=== PATIENT | female | born 1940 | race Caucasian/White ===

== ENCOUNTER 2017-10-14 18:08 | Emergency (ER) | payer OTHER ==
--- NOTE | 2017-10-14 19:32 | EDPHYS ---
Physician Documentation [facility] Name: Milagro Canela Age: 77 yrs Sex: Female : 1940 Arrival Date: 10/14/2017 Time: 18:14 Bed 26 Private MD: ED Physician Fidel Soria HPI: 10/14 21:23 This 77 yrs old Female presents to ER via EMS with complaints of Hip Pain. jr8 22:05 The patient or guardian reports pain. that occurred at home, sustained from a fall, jr8 There is no obvious deformity, The patient is able to self ambulate. The patient is able to bear their full body weight. The complaints affect the left hip. Onset: The symptoms/episode began/occurred acutely, today. Modifying factors: The symptoms are alleviated by nothing, the symptoms are aggravated by weight bearing. Associated signs and symptoms: Loss of consciousness: the patient experienced no loss of consciousness. Severity of symptoms: At their worst the symptoms were moderate, in the emergency department the symptoms are unchanged. The patient has not experienced similar symptoms in the past. The patient has not recently seen a physician. Historical: - Allergies: 18:30 No Known Allergies; kr2 - Home Meds: 18:30 levothyroxine 88 mcg tab 1 tab once daily [Active]; glucosamine-chondroitin oral oral kr2 [Active]; flaxseed oil 1,000 mg oral cap twice a day [Active]; metoprolol tartrate 25 mg Oral tab 1 tab 2 times per day [Active]; sertraline 100 mg oral tab 1.5 tabs once daily [Active]; tolterodine 4 mg oral cp24 1 cap once daily [Active]; Super B Complex-Vitamin C oral tab [Active]; multivitamin oral oral [Active]; gabapentin 100 mg oral cap 2 times per day [Active]; Co Q-10 100 mg oral cap [Active]; Ecotrin Low Strength 81 mg oral TbEC 1 tab once daily [Active]; doxycycline hyclate 100 mg Oral cap 1 cap once daily [Active]; esomeprazole magnesium 40 mg oral cpDR 1 cap once daily [Active]; magnesium citrate oral soln [Active]; - PMHx: 18:30 bladder tumors; Hypertension; Hypothyroidism; kr2 - PSHx: 18:30 Hysterectomy; Appendectomy; kr2 - Immunization history:: Adult Immunizations up to date. - Social history:: Smoking status: Patient/guardian denies using tobacco. - Ebola Screening: : No symptoms or risks identified at this time. ROS: 22:05 Eyes: Negative for injury, pain, redness, and discharge, ENT: Negative for injury, jr8 pain, and discharge, Neck: Negative for injury, pain, and swelling, Cardiovascular: Negative for chest pain, palpitations, and edema, Respiratory: Negative for shortness of breath, cough, wheezing, and pleuritic chest pain, Abdomen/GI: Negative for abdominal pain, nausea, vomiting, diarrhea, and constipation, Back: Negative for injury and pain, Skin: Negative for injury, rash, and discoloration, Neuro: Negative for headache, weakness, numbness, tingling, and seizure. 22:05 MS/extremity: Positive for ecchymosis, pain, tenderness, of the left leg. Exam: 22:05 Eyes: Pupils equal round and reactive to light, extra-ocular motions intact. Lids and jr8 lashes normal. Conjunctiva and sclera are non-icteric and not injected. Cornea within normal limits. Periorbital areas with no swelling, redness, or edema. ENT: Nares patent. No nasal discharge, no septal abnormalities noted. Tympanic membranes are normal and external auditory canals are clear. Oropharynx with no redness, swelling, or masses, exudates, or evidence of obstruction, uvula midline. Mucous membranes moist. Neck: Trachea midline, no thyromegaly or masses palpated, and no cervical lymphadenopathy. Supple, full range of motion without nuchal rigidity, or vertebral point tenderness. No Meningismus. Cardiovascular: Regular rate and rhythm with a normal S1 and S2. No gallops, murmurs, or rubs. Normal PMI, no JVD. No pulse deficits. Respiratory: Lungs have equal breath sounds bilaterally, clear to auscultation and percussion. No rales, rhonchi or wheezes noted. No increased work of breathing, no retractions or nasal flaring. Abdomen/GI: Soft, non-tender, with normal bowel sounds. No distension or tympany. No guarding or rebound. No evidence of tenderness throughout. Back: No spinal tenderness. No costovertebral tenderness. Full range of motion. Skin: Warm, dry with normal turgor. Normal color with no rashes, no lesions, and no evidence of cellulitis. Neuro: Awake and alert, GCS 15, oriented to person, place, time, and situation. Cranial nerves II-XII grossly intact. Motor strength 5/5 in all extremities. Sensory grossly intact. Cerebellar exam normal. Normal gait. 22:05 Musculoskeletal/extremity: Extremities: grossly normal except: noted in the left leg: ecchymosis, hematoma left hip, ROM: intact in all extremities, Circulation is intact in all extremities. Sensation intact. Vital Signs: 18:32 BP 111 / 66; Pulse 80; Resp 17; Temp 98.5; Pulse Ox 100% on R/A; Weight 65.32 kg; kr2 Height 4 ft. 10 in. (147.32 cm); Pain 0/10; 18:32 Body Mass Index 30.10 (65.32 kg, 147.32 cm) kr2 MDM: 18:43 Patient medically screened. jr8 19:31 Data reviewed: vital signs, nurses notes, radiologic studies, plain films, and as a jr8 result, I will discharge patient. Data interpreted: Pulse oximetry: on room air is 100 %. Interpretation: normal. Counseling: I had a detailed discussion with the patient and/or guardian regarding: the historical points, exam findings, and any diagnostic results supporting the discharge/admit diagnosis, radiology results, the need for outpatient follow up, a orthopedic surgeon, to return to the emergency department if symptoms worsen or persist or if there are any questions or concerns that arise at home. 10/14 18:49 Order name: XRAY Hip LEFT 2 view; Complete Time: 20:05 jr8 10/14 18:49 Order name: XRAY Femur LEFT; Complete Time: 20:05 jr8 Administered Medications: No medications were administered Disposition: 10/14/17 19:31 Discharged to Home. Impression: Hematoma left hip, Contusion of left hip. - Condition is Stable. - Discharge Instructions: Hematoma. - Medication Reconciliation Form, Thank You Letter, Antibiotic Education, Prescription Opioid Use form. - Follow up: Private Physician; When: 2 - 3 days; Reason: Recheck today's complaints, Continuance of care, Re-evaluation by your physician. - Problem is new. - Symptoms have improved. Addendum: 10/17/2017 19:38 Co-signature as Attending Physician, Fidel Soria MD. r n Signatures: Dispatcher [employer] EDMS Fidel Soria MD MD rn Roszak, Josh, PA PA jr8 Nadia Hubbard RN RN kr2 Corrections: (The following items were deleted from the chart) 10/14 19:32 19:31 10/14/2017 19:31 Discharged to Home. Impression: Hematoma left hip. Condition is jr8 Stable. Forms are Medication Reconciliation Form, Thank You Letter, Antibiotic Education, Prescription Opioid Use. Follow up: Private Physician; When: 2 - 3 days; Reason: Recheck today's complaints, Continuance of care, Re-evaluation by your physician. Problem is new. Symptoms have improved. jr8 20:12 19:32 10/14/2017 19:31 Discharged to Home. Impression: Hematoma left hip; Contusion of kr2 left hip. Condition is Stable. Discharge Instructions: Hematoma. Forms are Medication Reconciliation Form, Thank You Letter, Antibiotic Education, Prescription Opioid Use. Follow up: Private Physician; When: 2 - 3 days; Reason: Recheck today's complaints, Continuance of care, Re-evaluation by your physician. Problem is new. Symptoms have improved. jr8
--- NOTE | 2017-10-14 19:32 | ER ---
Nurse's Notes [facility] Name: Milagro Canela Age: 77 yrs Sex: Female : 1940 Arrival Date: 10/14/2017 Time: 18:14 Bed 26 Private MD: Diagnosis: Hematoma left hip;Contusion of left hip Presentation: 10/14 18:15 Presenting complaint: EMS states: Patient tripped and fell about 1.5 weeks ago. She has kr2 had hip pain and bruising ever since. Today she notice the bruising was much worse. She does not take blood thinners and has no other complaints. She is comfortable when lying still. Transition of care: patient was not received from another setting of care. Onset of symptoms was October 04, 2017. Risk Assessment: Do you want to hurt yourself or someone else? Patient reports no desire to harm self or others. Initial Sepsis Screen: Does the patient meet any 2 criteria? No. Patient's initial sepsis screen is negative. Does the patient have a suspected source of infection? No. Patient's initial sepsis screen is negative. Care prior to arrival: None. 18:15 Method Of Arrival: EMS: [facility] kr2 18:15 Acuity: ADRIANNA 4 kr2 Triage Assessment: 18:18 General: Appears in no apparent distress. comfortable, well groomed, well developed, kr2 well nourished, Behavior is calm, cooperative, appropriate for age. Pain: Complains of pain in left hip Pain radiates to left leg Pain currently is 0 out of 10 on a pain scale. at worst was 10 out of 10 on a pain scale. Quality of pain is described as sharp, tender, Is intermittent, Alleviated by rest, Aggravated by increased activity, weight bearing. EENT: Oral mucosa is moist. Neuro: Level of Consciousness is awake, alert, obeys commands, Oriented to person, place, time, situation, Appropriate for age. Cardiovascular: Capillary refill < 3 seconds in bilateral fingers Patient's skin is warm and dry. Respiratory: Airway is patent Respiratory effort is even, unlabored, Respiratory pattern is regular, symmetrical. GI: Abdomen is flat, non-distended. : Denies burning with urination. Derm: Skin is intact, is healthy with good turgor, Skin is pink, warm \T\ dry. Bruising that is dark purple, on left hip and thigh. Musculoskeletal: Circulation, motion, and sensation intact. Range of motion: limited in left hip Swelling present in left hip. Injury Description: fall resulting in pain and bruising to left hip. Historical: - Allergies: 18:30 No Known Allergies; kr2 - Home Meds: 18:30 levothyroxine 88 mcg tab 1 tab once daily [Active]; glucosamine-chondroitin oral oral kr2 [Active]; flaxseed oil 1,000 mg oral cap twice a day [Active]; metoprolol tartrate 25 mg Oral tab 1 tab 2 times per day [Active]; sertraline 100 mg oral tab 1.5 tabs once daily [Active]; tolterodine 4 mg oral cp24 1 cap once daily [Active]; Super B Complex-Vitamin C oral tab [Active]; multivitamin oral oral [Active]; gabapentin 100 mg oral cap 2 times per day [Active]; Co Q-10 100 mg oral cap [Active]; Ecotrin Low Strength 81 mg oral TbEC 1 tab once daily [Active]; doxycycline hyclate 100 mg Oral cap 1 cap once daily [Active]; esomeprazole magnesium 40 mg oral cpDR 1 cap once daily [Active]; magnesium citrate oral soln [Active]; - PMHx: 18:30 bladder tumors; Hypertension; Hypothyroidism; kr2 - PSHx: 18:30 Hysterectomy; Appendectomy; kr2 - Immunization history:: Adult Immunizations up to date. - Social history:: Smoking status: Patient/guardian denies using tobacco. - Ebola Screening: : No symptoms or risks identified at this time. Screenin:17 Abuse screen: Denies threats or abuse. Denies injuries from another. Nutritional kr2 screening: No deficits noted. Tuberculosis screening: No symptoms or risk factors identified. 18:17 Fall Risk Fall in past 12 months (25 points). kr2 Assessment: 18:15 Reassessment: See triage note. kr2 19:15 Reassessment: Patient appears in no apparent distress at this time. Patient and/or kr2 family updated on plan of care and expected duration. Pain level reassessed. Patient is alert, oriented x 3, equal unlabored respirations, skin warm/dry/pink. 20:00 Reassessment: Patient appears in no apparent distress at this time. Patient and/or kr2 family updated on plan of care and expected duration. Pain level reassessed. Patient is alert, oriented x 3, equal unlabored respirations, skin warm/dry/pink. Patient denies pain at this time. Vital Signs: 18:32 BP 111 / 66; Pulse 80; Resp 17; Temp 98.5; Pulse Ox 100% on R/A; Weight 65.32 kg; kr2 Height 4 ft. 10 in. (147.32 cm); Pain 0/10; 18:32 Body Mass Index 30.10 (65.32 kg, 147.32 cm) kr2 ED Course: 18:14 Patient arrived in ED. kr2 18:17 Triage completed. kr2 18:31 Arm band placed on. kr2 18:31 Patient has correct armband on for positive identification. Bed in low position. Call kr2 light in reach. Side rails up X2. Adult w/ patient. Pulse ox on. NIBP on. Door closed. Warm blanket given. Head of bed elevated. 18:43 Edgard De Guzman PA is PHCP. jr8 18:43 Fidel Soria MD is Attending Physician. jr8 18:46 Nadia Hubbard, CHRISSY is Primary Nurse. kr2 19:12 Patient moved to radiology via stretcher. kc2 19:12 X-ray completed. Patient tolerated procedure well. kc2 19:13 XRAY Hip LEFT 2 view In Process Unspecified. EDMS 19:13 XRAY Femur LEFT In Process Unspecified. EDMS 20:08 No provider procedures requiring assistance completed. Patient did not have IV access kr2 during this emergency room visit. Administered Medications: No medications were administered Outcome: 19:31 Discharge ordered by . jr8 20:09 Discharged to home via wheelchair, with family. kr2 20:09 Condition: good 20:09 Discharge instructions given to patient, family, Instructed on discharge instructions, follow up and referral plans. Demonstrated understanding of instructions, follow-up care. 20:12 Patient left the ED. kr2 Signatures: Dispatcher [employer] EDMS Edgard De Guzman PA PA jr8 Krystle Hermosillo kc2 Nadia Hubbard, RN RN kr2 Corrections: (The following items were deleted from the chart) 18:18 18:17 Fall Risk None identified. kr2 kr2
--- NOTE | 2017-10-14 19:34 | RAD REPORT ---
EXAM DESCRIPTION: RAD - Hip Left 2 View - 10/14/2017 7:16 pm CLINICAL HISTORY: PAIN History of fall COMPARISON: Hip Left 2 View dated 09/27/2014 FINDINGS: Mild osteopenia is seen. No fracture, dislocation or evidence of AVN.
--- NOTE | 2017-10-14 19:35 | RAD REPORT ---
EXAM DESCRIPTION: RAD - Femur Left - 10/14/2017 7:16 pm CLINICAL HISTORY: PAIN History of fall. COMPARISON: Hip Left 2 View dated 10/14/2017 FINDINGS: Degenerative changes are present left hip and left knee. No acute fracture or dislocation seen. No joint effusion evident. The bones are osteopenic.
[2017-10-14 21:40] VITALS: BP 111/66; TEMP 98.5; O2SAT 100
== END 2017-10-14 20:12 | disposition home or self-care (01) ==
LOC: ER 18:08
DX: S70.02XA Contusion of left hip, initial encounter (principal); W01.0XXA Fall on same level from slipping, tripping and stumbling without subsequent striking against object, initial encounter; Y93.9 Activity, unspecified; Y92.9 Unspecified place or not applicable; I10 Essential (primary) hypertension; E03.9 Hypothyroidism, unspecified
CPT/HCPCS: 99284

== ENCOUNTER 2017-11-27 14:01 | Inpatient (IN) | payer OTHER ==
[2017-11-27] MEDS ORDERED: NA CHLORIDE 0.9% 1,000 ML ONE (14:58)
[2017-11-27] MEDS ORDERED: NA CHLORIDE 0.9% 500 ML ONE (14:58)
[2017-11-27] MEDS ORDERED: THIAMINE 200 MG/2 ML INJ ONE (14:58)
[2017-11-27 15:12] LABS: Absolute Lymphocytes (CBC) 0.8 K/uL (0.7-4.9); Absolute Monocytes 0.3 K/uL (0.1-1.3); Absolute Neutrophil 2.7 K/uL (1.8-8.0); Basophils % 0.6 % (0-1.3); Eosinophils % 2.3 % (0-4.4); Hematocrit 36.1 % (36.0-45.0); MCH 35.3 pg (27.0-35.0); MCV 103.8 fL (80-100); MPV 8.5 fL (7.6-11.3); Monocytes % 6.8 % (3.3-12.3); RBC Red Blood Cell Count 3.47 M/uL (3.86-4.86)
[2017-11-27 15:16] LABS: Protime INR 0.95
[2017-11-27 15:18] LABS: ALT/SGPT 17 U/L (12-78); AST/SGOT 15 U/L (15-37); Albumin 3.4 g/dL (3.4-5.0); Alkaline Phosphatase 57 U/L (45-117); BUN Blood Urea Nitrogen 24 mg/dL (7-18); Bicarbonate 24 mmol/L (21-32); Bilirubin Direct 0.1 mg/dL (0-0.2); Bilirubin Total 0.3 mg/dL (0.2-1.0); CKMB Creatine Kinase MB 3.2 ng/mL (0.3-3.6); Creatine Phosphokinase 73 U/L (26-192); Glucose Level 76 mg/dL (74-106); Lipase 39 U/L (73-393); Magnesium 1.9 mg/dL (1.8-2.4); NT PRO-BNP 503 pg/mL (<450); Potassium 4.5 mmol/L (3.5-5.1); Protein, Total 6.4 g/dL (6.4-8.2); Sodium Level 144 mmol/L (136-145)
[2017-11-27 15:19] LABS: Alcohol Serum/Plasma 68 mg/dL (<3)
--- NOTE | 2017-11-27 15:25 | RAD REPORT ---
EXAM DESCRIPTION: CT - Head C Spine Mpr Wo Con - 11/27/2017 3:02 pm CLINICAL HISTORY: Head and neck injury status post fall. Head and neck pain COMPARISON: None. TECHNIQUE: Computed axial tomography of the head and cervical spine was obtained. Sagittal and coronal reconstruction was performed. All CT scans are performed using dose optimization technique as appropriate and may include automated exposure control or mA/KV adjustment according to patient size. FINDINGS: An intracranial bleed is not seen. Cerebral atrophy is seen. The ventricles are normal in caliber. An extra-axial fluid collection is not noted.Fluid within the v isualized sinuses and mastoids is not seen A cervical fracture is not visualized. No dislocation is noted. The airway is occluded at the level o f the oropharynx IMPRESSION: No acute intracranial abnormality is seen. A cervical fracture is not visualized. If the patient continues to have symptoms to suggest intracra nial /spinal cord pathology then MRI would be recommended The airway is occluded at the level of the oropharynx likely secondary to supine positioning. If clin ically indicated further evaluation of the airway could be obtained with a CT scan with the patient i n prone position.
--- NOTE | 2017-11-27 15:26 | RAD REPORT ---
EXAM DESCRIPTION: RAD - Pelvis - 11/27/2017 3:17 pm CLINICAL HISTORY: Pelvic pain status post fall FINDINGS: No fracture or dislocation is seen. The bones are osteoporotic If the patient continues have symptoms to suggest an occult fracture then MRI would be recommended
--- NOTE | 2017-11-27 15:27 | RAD REPORT ---
EXAM DESCRIPTION: Erlin Single View11/27/2017 3:17 pm CLINICAL HISTORY: cough COMPARISON: June 2016 FINDINGS: The lungs appear clear of acute infiltrate. The heart is normal size A small to moderate hiatal hernia is present IMPRESSION: No acute abnormalities displayed
--- NOTE | 2017-11-27 16:35 | ER ---
Nurse's Notes [facility] Name: Milagro Canela Age: 77 yrs Sex: Female : 1940 Arrival Date: 11/27/2017 Time: 14:09 Bed 5 Private MD: Diagnosis: Fall due to bumping against object;Alcohol abuse with intoxication;Weakness;Unspecified kidney failure;Hypotension Presentation: 11/27 14:14 Presenting complaint: EMS states: pt was found by friend on the floor post-fall. Pt aa5 states "I fell trying to change my clothes". Pt smells of alcohol, pt denies any alcohol use today, pt states "I drink a glass of wine every now and then". EMS reports that friend reported pt has chronic use of alcohol use. Pt denies head injury, denies LOC. EMS reports pt's BP was 108/74 upon scene arrival and decreased to 78/54 and increased back to 104/68 upon administration of NS bolus. Transition of care: patient was not received from another setting of care. Onset of symptoms was November 27, 2017. Risk Assessment: Do you want to hurt yourself or someone else? Patient reports no desire to harm self or others. Initial Sepsis Screen: Does the patient meet any 2 criteria? No. Patient's initial sepsis screen is negative. Does the patient have a suspected source of infection? No. Patient's initial sepsis screen is negative. Care prior to arrival: Medication(s) given: Normal saline infusion, 500 mL, IV initiated. 20 GA, in the right forearm, Glucose check: 90. 14:14 Method Of Arrival: EMS: [facility] aa5 14:14 Acuity: ADRIANNA 3 aa5 Historical: - Allergies: 14:15 Sulfa (Sulfonamide Antibiotics) (Rash); aa5 - Home Meds: 14:15 doxycycline hyclate 100 mg Oral cap 1 cap 2 times per day [Active]; gabapentin 100 mg aa5 Oral cap 2 times per day [Active]; sertraline 100 mg Oral tab 1.5 tabs once daily [Active]; levothyroxine 88 mcg tab 1 tab once daily [Active]; 14:20 Metoprolol Tartrate Oral 25mg 1/2 tab twice a day [Active]; aa5 - PMHx: 14:15 Hypothyroidism; bladder tumors; Hypertension; Depression; aa5 - PSHx: 14:15 Hysterectomy; Appendectomy; aa5 - Immunization history:: Adult Immunizations unknown. - Social history:: Smoking status: Patient/guardian denies using tobacco. - Ebola Screening: : No symptoms or risks identified at this time. - Family history:: not pertinent. Screenin:37 Abuse screen: Denies threats or abuse. Nutritional screening: No deficits noted. aa5 Tuberculosis screening: No symptoms or risk factors identified. Fall Risk Fall in past 12 months (25 points). IV access (20 points). Ambulatory Aid- Crutches/Cane/Walker (15 pts). Total T[place]res Fall Scale indicates High Risk Score (45 or more points). Fall prevention measures have been instituted. Side Rails Up X 2 Placed Close to Nursing Station. Assessment: 14:17 General: Appears comfortable, Behavior is calm, cooperative, Smells of alcohol. Pain: aa5 Denies pain. Neuro: Level of Consciousness is awake, alert, obeys commands, Oriented to person, place, time, situation, Sales And Marketing Executive are equal bilaterally Moves all extremities. Speech is normal, Facial symmetry appears normal, Pupils are PERRLA. Cardiovascular: Heart tones S1 S2 present Rhythm is sinus rhythm. Respiratory: Airway is patent Respiratory effort is even, unlabored, Respiratory pattern is regular, symmetrical, Breath sounds are clear bilaterally. GI: No signs and/or symptoms were reported involving the gastrointestinal system. : No signs and/or symptoms were reported regarding the genitourinary system. EENT: No signs and/or symptoms were reported regarding the EENT system. Derm: Skin is pink, warm \\T\\ dry. Musculoskeletal: Range of motion: intact in all extremities. 15:20 Reassessment: Patient and/or family updated on plan of care and expected duration. Pain aa5 level reassessed. Patient is alert, oriented x 3, equal unlabored respirations, skin warm/dry/pink. Patient denies pain at this time. Pt back from CT scan, pt states "I still can't pee but I'll call you when I have to" . 16:15 Reassessment: attempted to get pt up to bathroom via wheelchair, pt unable to stand iw with assistance, legs are very shaky, very weak, pt assisted back into bed, Dr. Schmidt notified. 17:20 Reassessment: Patient and/or family updated on plan of care and expected duration. Pain aa5 level reassessed. Patient is alert, oriented x 3, equal unlabored respirations, skin warm/dry/pink. Patient denies pain at this time. Pt sitting up in bed eating, pt tolerating well . Vital Signs: 14:15 BP 129 / 81; Pulse 83; Resp 14 S; Temp 98.5(O); Pulse Ox 98% on R/A; Pain 0/10; aa5 14:44 BP 116 / 70; Pulse 82; Resp 18 S; Pulse Ox 98% on R/A; aa5 15:25 BP 114 / 91; Pulse 82; Resp 20 S; Pulse Ox 95% on R/A; aa5 16:30 BP 148 / 87; Pulse 81; Resp 18 S; Temp 98.3(O); Pulse Ox 100% on R/A; aa5 17:30 BP 138 / 85; Pulse 82; Resp 16 S; Pulse Ox 100% on R/A; aa5 NIH Stroke Scale Scores: 16:36 NIHSS Score: 1 fritz ED Course: 14:09 Patient arrived in ED. iw 14:13 Wilder Schmidt MD is Attending Physician. fritz 14:13 Linda Mosley, RN is Primary Nurse. aa5 14:14 Arm band placed on. aa5 14:15 Patient has correct armband on for positive identification. Placed in gown. Bed in low aa5 position. Call light in reach. Side rails up X2. school bus monitor on. Pulse ox on. NIBP on. 14:20 Triage completed. aa5 14:36 Maintain EMS IV. Site clean \\T\\ dry. Gauge \\T\\ site: 20 G R FA . aa 5 14:38 No provider procedures requiring assistance completed. aa5 15:[address] via stretcher. nj 15:02 CT completed. Patient tolerated procedure well. Patient moved back from CT. nj 15:02 CT Head C Spine In Process Unspecified. EDMS 15:10 X-ray completed. Portable x-ray completed in exam room. Patient tolerated procedure la2 well. 15:13 XRAY Chest (1 view) In Process Unspecified. EDMS 15:13 Pelvis XRAY In Process Unspecified. EDMS 16:33 Alhaji Faria MD is Hospitalizing Provider. fritz 16:35 Urine collected: straight cath specimen, clear. Straight cath inserted, using sterile ag technique, 16 Fr. Specimen obtained. 17:31 Patient admitted, IV remains in place. aa5 Administered Medications: Discontinued: NS 0.9% 1000 ml IV at 125 ml/hr continuous 14:40 Drug: NS 0.9% 1000 ml Route: IV; Rate: 1 bolus; Site: right forearm; aa5 16:30 Follow up: IV Status: Completed infusion aa5 15:19 Drug: NS 0.9% 1000 ml Route: IV; Rate: 125 ml/hr; Site: right forearm; aa5 17:24 Follow up: IV Status: Order to discontinue infusion aa5 15:19 Drug: Thiamine 100 mg Route: IV; Rate: bolus; Site: right forearm; aa5 16:55 Drug: Aspirin 162 mg Route: PO; iw 18:00 Follow up: Response: No adverse reaction aa5 16:55 Drug: foLIC Acid 1 mg Route: IVPB; Site: right forearm; iw 17:24 Drug: Banana Bag - (NS 0.9% 1000 ml, foLIC Acid 1 mg, Thiamine 100 mg, Multivitamin 1 aa5 amp) Route: IV; Rate: 125 ml/hr; Site: right forearm; 18:00 Follow up: IV Status: Infusion continued upon admission aa5 Outcome: 16:34 Decision to Hospitalize by Provider. fritz 18:00 Admitted to Med/surg accompanied by tech, via stretcher, with chart, Report called to antonio Cueto RN 18:00 Condition: stable 18:00 Discharge instructions given to patient, family, Instructed on the need for admit, Demonstrated understanding of instructions. 18:12 Patient left the ED. NIH Stroke Scale - NIH Stroke Score Date: 11/27/2017 Time: 16:36 Total Score = 1 1a. Level of Consciousness (LOC) - 0(Alert) 1b. Level of Consciousness (LOC) (Year \\T\\ Age) - 0(Both) 1c. LOC Commands (Open \\T\\ Closes Eyes/Sole Seamer) - 0(Both) 2. Best Gaze (Lateral Gaze Paresis) - 0(Normal) 3. Visual Field Loss - 0(No visual loss) 4. Facial Palsy - 0(Normal) 5a. Left Arm: Motor (10-second hold) - 0(No drift) 5b. Right Arm: Motor (10-second hold) - 0(No drift) 6a. Left Leg: Motor (5-second hold - always test supine) - 0(No drift) 6b. Right Leg: Motor (5-second hold - always test supine) - 0(No drift) 7. Limb Ataxia (finger/nose \\T\\ heel/reed - test with eyes open) - 0(Absent) 8. Sensory Loss (pinprick arms/legs/face) - 0(Normal) 9. Best Language: Aphasia (description/naming/reading) - 0(No aphasia) 10. Dysarthria (speech clarity - read or repeat words) - 1(Mild to Moderate) 11. Extinction and Inattention (visual/tactile/auditory/spatial/personal) - 0(No abnormality) Initials: fritz Signatures: Dispatcher [employer] EDWilder Mejias MD MD cha Williams, Irene, RN RN iw Calderon, Audri, RN RN aa5 Serenity Muñoz, Palma Langston2 Corrections: (The following items were deleted from the chart) 14:23 14:14 Care prior to arrival: None. aa5 aa5 15:37 14:15 Home Meds: metoprolol tartrate 25 mg Oral tab 1 tab 2 times per day; aa5 aa5 17:57 14:15 Allergies: No Known Allergies; aa5 aa5
--- NOTE | 2017-11-27 16:35 | EDPHYS ---
Physician Documentation [facility] Name: Milagro Canela Age: 77 yrs Sex: Female : 1940 Arrival Date: 11/27/2017 Time: 14:09 Bed 5 Private MD: ED Physician Wilder Schmidt HPI: 11/27 14:28 This 77 yrs old Female presents to ER via EMS with complaints of ams and fall fritz this morning. 14:28 The patient presents with confusion, decreased responsiveness, trouble concentrating. fritz Onset: The symptoms/episode began/occurred just prior to arrival, today. Possible causes: alcohol. The patient presents with dizziness. Modifying factors: The symptoms are alleviated by lying down, the symptoms are aggravated by movement of head, standing up. Associated signs and symptoms: The patient has no apparent associated signs or symptoms. Historical: - Allergies: 14:15 Sulfa (Sulfonamide Antibiotics) (Rash); aa5 - Home Meds: 14:15 doxycycline hyclate 100 mg Oral cap 1 cap 2 times per day [Active]; gabapentin 100 mg aa5 Oral cap 2 times per day [Active]; sertraline 100 mg Oral tab 1.5 tabs once daily [Active]; levothyroxine 88 mcg tab 1 tab once daily [Active]; 14:20 Metoprolol Tartrate Oral 25mg 1/2 tab twice a day [Active]; aa5 - PMHx: 14:15 Hypothyroidism; bladder tumors; Hypertension; Depression; aa5 - PSHx: 14:15 Hysterectomy; Appendectomy; aa5 - Immunization history:: Adult Immunizations unknown. - Social history:: Smoking status: Patient/guardian denies using tobacco. - Ebola Screening: : No symptoms or risks identified at this time. - Family history:: not pertinent. ROS: 14:28 Constitutional: Negative for fever, chills, and weight loss, Eyes: Negative for injury, fritz pain, redness, and discharge, ENT: Negative for injury, pain, and discharge, Neck: Negative for injury, pain, and swelling, Cardiovascular: Negative for chest pain, palpitations, and edema, Respiratory: Negative for shortness of breath, cough, wheezing, and pleuritic chest pain, Abdomen/GI: Negative for abdominal pain, nausea, vomiting, diarrhea, and constipation, Back: Negative for injury and pain, : Negative for injury, bleeding, discharge, and swelling, MS/Extremity: Negative for injury and deformity, Skin: Negative for injury, rash, and discoloration, Psych: Negative for depression, anxiety, suicide ideation, homicidal ideation, and hallucinations, Allergy/Immunology: Negative for hives, rash, and allergies, Endocrine: Negative for neck swelling, polydipsia, polyuria, polyphagia, and marked weight changes, Hematologic/Lymphatic: Negative for swollen nodes, abnormal bleeding, and unusual bruising. 14:28 Neuro: Positive for altered mental status, dizziness, weakness. Exam: 14:28 Constitutional: This is a well developed, well nourished patient who is awake, alert, fritz and in no acute distress. Head/Face: Normocephalic, atraumatic. Eyes: Pupils equal round and reactive to light, extra-ocular motions intact. Lids and lashes normal. Conjunctiva and sclera are non-icteric and not injected. Cornea within normal limits. Periorbital areas with no swelling, redness, or edema. ENT: Nares patent. No nasal discharge, no septal abnormalities noted. Tympanic membranes are normal and external auditory canals are clear. Oropharynx with no redness, swelling, or masses, exudates, or evidence of obstruction, uvula midline. Mucous membranes moist. Neck: Trachea midline, no thyromegaly or masses palpated, and no cervical lymphadenopathy. Supple, full range of motion without nuchal rigidity, or vertebral point tenderness. No Meningismus. Chest/axilla: Normal chest wall appearance and motion. Nontender with no deformity. No lesions are appreciated. Cardiovascular: Regular rate and rhythm with a normal S1 and S2. No gallops, murmurs, or rubs. Normal PMI, no JVD. No pulse deficits. Respiratory: Lungs have equal breath sounds bilaterally, clear to auscultation and percussion. No rales, rhonchi or wheezes noted. No increased work of breathing, no retractions or nasal flaring. Abdomen/GI: Soft, non-tender, with normal bowel sounds. No distension or tympany. No guarding or rebound. No evidence of tenderness throughout. Back: No spinal tenderness. No costovertebral tenderness. Full range of motion. Female : Normal external genitalia. Skin: Warm, dry with normal turgor. Normal color with no rashes, no lesions, and no evidence of cellulitis. MS/ Extremity: Pulses equal, no cyanosis. Neurovascular intact. Full, normal range of motion. Psych: Awake, alert, with orientation to person, place and time. Behavior, mood, and affect are within normal limits. 14:28 Neuro: Orientation: to person, place, Not oriented to time, situation, Mentation: slow to respond, confused, Memory: is normal, appropriate for stated age, Cerebellar function: is grossly normal, is grossly normal based on the patient's age, no acute changes, Motor: is grossly normal based on the patient's age, no acute changes, moves all fours, Gait: not tested. Deep tendon reflexes are 2+ (normal) in the bilateral brachioradialis, bicep, tricep and patellar and Achilles tendons, seizure activity, is not displayed by the patient. Vital Signs: 14:15 BP 129 / 81; Pulse 83; Resp 14 S; Temp 98.5(O); Pulse Ox 98% on R/A; Pain 0/10; aa5 14:44 BP 116 / 70; Pulse 82; Resp 18 S; Pulse Ox 98% on R/A; aa5 15:25 BP 114 / 91; Pulse 82; Resp 20 S; Pulse Ox 95% on R/A; aa5 16:30 BP 148 / 87; Pulse 81; Resp 18 S; Temp 98.3(O); Pulse Ox 100% on R/A; aa5 17:30 BP 138 / 85; Pulse 82; Resp 16 S; Pulse Ox 100% on R/A; aa5 NIH Stroke Scale Scores: 16:36 NIHSS Score: 1 fritz MDM: 14:13 Patient medically screened. [facility] 14:31 Data reviewed: vital signs, nurses notes, lab test result(s), EKG, radiologic studies, [facility] CT scan, plain films. 11/27 14: Order name: Basic Metabolic Panel; Complete Time: 16:01 [facility] 11/27 14:27 Order name: CBC with Diff; Complete Time: 16: [facility] 11/27 14:27 Order name: Ckmb; Complete Time: 16: [facility] 11/27 14:27 Order name: CPK; Complete Time: 16:01 [facility] 11/27 14:27 Order name: LFT's; Complete Time: 16: [facility] 11/27 14:27 Order name: Magnesium; Complete Time: 16:01 [facility] 11/27 14:27 Order name: NT PRO-BNP; Complete Time: 16:01 [facility] 11/27 14:27 Order name: PT-INR; Complete Time: 16:01 [facility] 11/27 14:27 Order name: Ptt, Activated; Complete Time: 16:01 [facility] 11/27 14:27 Order name: Troponin (emerg Dept Use Only); Complete Time: 16:01 [facility] 11/27 14:27 Order name: Lipase; Complete Time: 16:01 [facility] 11/27 14:27 Order name: Acetaminophen; Complete Time: 16:01 [facility] 11/27 14:27 Order name: ETOH Level; Complete Time: 16:01 [facility] 11/27 14:27 Order name: Salicylate; Complete Time: 16:01 [facility] 11/27 14:27 Order name: XRAY Chest (1 view); Complete Time: 16:01 [facility] 11/27 14:27 Order name: Urine Drug Screen [facility] 11/27 14:27 Order name: CT Head C Spine; Complete Time: 16:01 [facility] 11/27 14:27 Order name: Pelvis XRAY; Complete Time: 16:01 [facility] 11/27 14:50 Order name: LAB Add On bd 11/27 14:51 Order name: Thyroid Stimulating Hormone; Complete Time: 16:01 EDMS 11/27 16:46 Order name: Basic Metabolic Panel EDMS 11/27 16:46 Order name: Basic Metabolic Panel EDMS 11/27 16:46 Order name: CBC with Automated Diff EDMS 11/27 16:46 Order name: CBC with Automated Diff EDMS 11/27 16:46 Order name: Troponin I EDMS 11/27 16:46 Order name: Troponin I EDMS 11/27 16:46 Order name: Troponin I EDMS 11/27 17:07 Order name: Urine Dipstick--Ancillary (enter results) bd 11/27 17:13 Order name: Urine Dipstick-Ancillary EDMS 11/27 14:27 Order name: EKG; Complete Time: 14:28 fritz 11/27 14:27 Order name: Cardiac monitoring; Complete Time: 14:35 [facility] 11/27 14:27 Order name: EKG - Nurse/Tech; Complete Time: 14:35 [facility] 11/27 14:27 Order name: IV Saline Lock; Complete Time: 14:35 [facility] 11/27 14:27 Order name: Labs collected and sent; Complete Time: 14:35 [facility] 11/27 14:27 Order name: O2 Per Protocol; Complete Time: 14:35 [facility] 11/27 14:27 Order name: O2 Sat Monitoring; Complete Time: 14:35 [facility] 11/27 14:27 Order name: Urine Dipstick-Ancillary (obtain specimen); Complete Time: 16:49 [facility] 11/27 16:46 Order name: Regular EDMS 11/27 16:46 Order name: EKG Electrocardiogram EDMS 11/27 16:46 Order name: EKG Electrocardiogram EDMS 11/27 16:46 Order name: EKG Electrocardiogram EDMS 11/27 16:46 Order name: EKG Electrocardiogram EDMS Administered Medications: Discontinued: NS 0.9% 1000 ml IV at 125 ml/hr continuous 14:40 Drug: NS 0.9% 1000 ml Route: IV; Rate: 1 bolus; Site: right forearm; aa5 16:30 Follow up: IV Status: Completed infusion aa5 15:19 Drug: NS 0.9% 1000 ml Route: IV; Rate: 125 ml/hr; Site: right forearm; aa5 17:24 Follow up: IV Status: Order to discontinue infusion aa5 15:19 Drug: Thiamine 100 mg Route: IV; Rate: bolus; Site: right forearm; aa5 16:55 Drug: Aspirin 162 mg Route: PO; iw 18:00 Follow up: Response: No adverse reaction aa5 16:55 Drug: foLIC Acid 1 mg Route: IVPB; Site: right forearm; iw 17:24 Drug: Banana Bag - (NS 0.9% 1000 ml, foLIC Acid 1 mg, Thiamine 100 mg, Multivitamin 1 aa5 amp) Route: IV; Rate: 125 ml/hr; Site: right forearm; 18:00 Follow up: IV Status: Infusion continued upon admission aa5 Disposition: 11/27/17 16:34 Hospitalization ordered by Alhaji Faria for Inpatient Admission. Preliminary diagnosis are Fall due to bumping against object, Alcohol abuse with intoxication, Weakness, Unspecified kidney failure, Hypotension. - Bed requested for Telemetry/MedSurg (observation). - Status is Inpatient Admission. iw - Condition is Fair. - Problem is new. - Symptoms have improved. UTI on Admission? No NIH Stroke Scale - NIH Stroke Score Date: 11/27/2017 Time: 16:36 Total Score = 1 1a. Level of Consciousness (LOC) - 0(Alert) 1b. Level of Consciousness (LOC) (Year \T\ Age) - 0(Both) 1c. LOC Commands (Open \T\ Closes Eyes/Grader Operator) - 0(Both) 2. Best Gaze (Lateral Gaze Paresis) - 0(Normal) 3. Visual Field Loss - 0(No visual loss) 4. Facial Palsy - 0(Normal) 5a. Left Arm: Motor (10-second hold) - 0(No drift) 5b. Right Arm: Motor (10-second hold) - 0(No drift) 6a. Left Leg: Motor (5-second hold - always test supine) - 0(No drift) 6b. Right Leg: Motor (5-second hold - always test supine) - 0(No drift) 7. Limb Ataxia (finger/nose \T\ heel/reed - test with eyes open) - 0(Absent) 8. Sensory Loss (pinprick arms/legs/face) - 0(Normal) 9. Best Language: Aphasia (description/naming/reading) - 0(No aphasia) 10. Dysarthria (speech clarity - read or repeat words) - 1(Mild to Moderate) 11. Extinction and Inattention (visual/tactile/auditory/spatial/personal) - 0(No abnormality) Initials: fritz Signatures: Dispatcher [employer] Justyna Gamez RN RN dw Anderson, Corey, MD MD cha Williams, Irene, RN RN iw Calderon, Audri, RN RN aa5 Corrections: (The following items were deleted from the chart) 15:37 14:15 Home Meds: metoprolol tartrate 25 mg Oral tab 1 tab 2 times per day; aa5 aa5 16:38 16:34 Hospitalization Ordered by Alhaji Faria MD for Observation. Preliminary fritz diagnosis is Fall due to bumping against object; Alcohol abuse with intoxication; Weakness; Unspecified kidney failure. Bed requested for Telemetry/MedSurg (observation). Status is Observation. Condition is Fair. Problem is new. Symptoms have improved. UTI on Admission? No. fritz 16:39 16:38 11/27/2017 16:34 Hospitalization Ordered by Alhaji Faria MD for fritz Observation. Preliminary diagnosis is Fall due to bumping against object; Alcohol abuse with intoxication; Weakness; Unspecified kidney failure; Hypotension. Bed requested for Telemetry/MedSurg (observation). Status is Observation. Condition is Fair. Problem is new. Symptoms have improved. UTI on Admission? No. fritz 17:13 16:39 11/27/2017 16:34 Hospitalization Ordered by Alhaji Faria MD for Inpatient dw Admission. Preliminary diagnosis is Fall due to bumping against object; Alcohol abuse with intoxication; Weakness; Unspecified kidney failure; Hypotension. Bed requested for Telemetry/MedSurg (observation). Status is Inpatient Admission. Condition is Fair. Problem is new. Symptoms have improved. UTI on Admission? No. fritz 17:57 14:15 Allergies: No Known Allergies; aa5 aa5 18:12 17:13 11/27/2017 16:34 Hospitalization Ordered by Alhaji Faria MD for Inpatient iw Admission. Preliminary diagnosis is Fall due to bumping against object; Alcohol abuse with intoxication; Weakness; Unspecified kidney failure; Hypotension. Bed requested for Telemetry/MedSurg (observation). Status is Inpatient Admission. Condition is Fair. Problem is new. Symptoms have improved. UTI on Admission? No. dw
[2017-11-27 16:43] LABS: Barbiturates NEGATIVE (NEGATIVE); Benzodiazepines NEGATIVE (NEGATIVE); Cocaine NEGATIVE (NEGATIVE); METHAMPHETAM NEGATIVE (NEGATIVE); Methadone NEGATIVE (NEGATIVE); Opiates NEGATIVE (NEGATIVE); Phencyclidine NEGATIVE (NEGATIVE); THC Cannibis NEGATIVE (NEGATIVE)
[2017-11-27] MEDS ORDERED: ONDANSETRON 4 MG/2 ML VIAL IV PRN (16:43)
[2017-11-27] MEDS ORDERED: ACETAMINOPHEN 500 MG TAB PO PRN (16:43)
[2017-11-27] MEDS ORDERED: ASPIRIN 81 MG CHEWABLE TABLET ONE (16:56)
[2017-11-27] MEDS ORDERED: FOLIC ACID 5 MG/ML VIAL ONE (16:57)
[2017-11-27 17:13] LABS: Urine Blood NEGATIVE (NEG); Urine Glucose NEGATIVE (NEG); Urine Protein NEGATIVE (NEG); Urine Specific Gravity 1.015 (1.005-1.030); Urine pH 5.5 (5.0-7.0)
[2017-11-27] MEDS: FOLIC ACID 1 MG, MULTIVITAMINS INJ 10 ML, THIAMINE HCL 100 MG in NA CHLORIDE 0.9% 1,000 ML IV SCH (18:00)
[2017-11-27 19:35] VITALS: BMI 32.3
[2017-11-27] MEDS ORDERED: FAMOTIDINE 20 MG/2 ML VIAL IV SCH (21:00)
[2017-11-27] MEDS: GABAPENTIN 100 MG CAP PO SCH (21:39)
[2017-11-27] MEDS: MIRTAZAPINE 15 MG TAB PO SCH (21:39)
[2017-11-28 04:23] LABS: Absolute Lymphocytes (CBC) 1.2 K/uL (0.7-4.9); Absolute Monocytes 0.4 K/uL (0.1-1.3); Absolute Neutrophil 2.6 K/uL (1.8-8.0); Basophils % 0.5 % (0-1.3); Eosinophils % 1.1 % (0-4.4); Hematocrit 30.6 % (36.0-45.0); Lymphocytes % 28.5 % (15.3-44.8); MCH 36.1 pg (27.0-35.0); MCV 102.9 fL (80-100); MPV 8.8 fL (7.6-11.3); Monocytes % 9.1 % (3.3-12.3); RBC Red Blood Cell Count 2.98 M/uL (3.86-4.86)
[2017-11-28 04:30] LABS: Potassium 4.2 mmol/L (3.5-5.1)
[2017-11-28] MEDS: PANTOPRAZOLE 40MG TABLET PO SCH (06:42)
[2017-11-28] MEDS: LEVOTHYROXINE SOD 0.1 MG TAB PO SCH (06:42)
--- NOTE | 2017-11-28 07:34 | EKG ---
Test Date: 2017-11-27 Test Time: 14:13:52 Pin Feather Machine Operator: ANNE MEASUREMENT RESULTS: Intervals: Rate: 80 DE: 164 QRSD: 76 QT: 386 QTc: 445 [place]: P: 22 DE: 164 QRS: -7 T: 20 INTERPRETIVE STATEMENTS: Normal sinus rhythm normal ECG Compared to ECG 10/06/2014 21:30:35 ST (T wave) deviation no longer present Possible ischemia no longer present Myocardial infarct finding no longer present Electronically Signed On 11-28-17 07:33:53 CDT by Timo Mccray
[2017-11-28] MEDS: SERTRALINE HCL 100 MG TAB PO SCH (09:00)
[2017-11-28] MEDS: ASPIRIN EC 81 MG TAB PO SCH (09:00)
[2017-11-28] MEDS: SERTRALINE HCL 50 MG TAB PO SCH (09:00)
[2017-11-28] MEDS: MAGNESIUM OXIDE 400 MG TAB PO SCH (09:00)
[2017-11-28] MEDS: GABAPENTIN 100 MG CAP PO SCH ×2 (09:00→21:46)
[2017-11-28] MEDS: FE SULF/FA/VIT B COMP & C TAB PO SCH (09:00)
[2017-11-28] MEDS: TOLTERODINE LA 4 MG CAP PO SCH (09:01)
--- NOTE | 2017-11-28 16:11 | HP ---
Date of Admission: 11/28/2017 DICTATION ENDS HERE KETAN/MODL Voice ID: [id number]
--- NOTE | 2017-11-28 16:17 | HP ---
Date of Admission: 11/28/2017 Chief Complaint: Fall and weakness. History Of Present Illness: A 77-year-old female patient, lives at home, has multiple comorbidities, and uses a walker. Yesterday, she was trying to get out of the bed and she fell down on the floor. She was too weak to get up and within 30-40 minutes, her friends came over and they called ambulance, and the patient was brought into the emergency room. She denies any injury or any pain as a result of this fall. The patient has a longstanding history of alcohol use. She continues to drink alcohol and I have instructed her on multiple occasions to quit using alcohol completely, but so far she has not quit using her alcohol and yesterday when she came in, her alcohol level was detected at 68. She was evaluated in the ER. After workup completed, she was admitted to the hospital. When I saw her this morning, she was feeling fine. Denied any specific complaints this morning. Allergies: TO SULFA. Medications: Vitamin B complex daily, CoQ10 200 mg p.o. daily, Detrol LA 4 mg p.o. daily, aspirin 81 mg daily, gabapentin 200 mg 2 times a day, glucosamine/ chondroitin 2 tablets daily, Hemocyte-Plus 1 tablet 2 times a day, levothyroxine 100 mcg daily, magnesium 250 mg daily, metoprolol 25 mg takes half a tablet 2 times a day, mirtazapine 30 mg p.o. daily at bedtime, multivitamin daily, Nexium 40 mg p.o. daily, sertraline 150 mg p.o. daily. 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 Constitutional: As mentioned above. All other systems reviewed and negative. Past Medical History: Significant for peripheral neuropathy, impaired fasting glucose, anemia, hypothyroidism, hypertension, hyperlipidemia, osteoarthritis at multiple sites, diverticulosis, gastroesophageal reflux disease, depression. Past Surgical History: Arthroscopic knee surgery, appendectomy, hysterectomy, breast reduction, and tumor removed from the bladder. Family History: Significant for coronary artery disease, congestive heart failure, stroke, diabetes, and colon cancer. Social History: Negative for smoking. Use of alcohol positive. Physical Examination: Vital signs: Height 4 feet, 10 inches. Weight 154 pounds, temperature 98.7, pulse 78, respiratory rate 18, blood pressure 188/91. General: Awake, alert, oriented, not in distress. HEENT: Head atraumatic, normocephalic. Conjunctivae nonerythematous. Sclerae white. Mouth, no thrush or edema noted. Ears/Nose, no mass, lesion, discharge noted. Neck: Supple. No JVD, lymph nodes, bruit, thyromegaly noted. Lungs: Bilateral good equal air entry. Clear to auscultation. No rhonchi. No rales. Heart: Normal heart sounds, no murmur or gallop. Abdomen: Soft, bowel sounds normal. No guarding, rigidity, tenderness, mass, hepatosplenomegaly, distention, or bruit noted. Extremities: No leg edema. No calf tenderness. Skin: No rash, ulcer, cellulitis. Lymphatics: No lymph node enlargement in neck, supraclavicular, infraclavicular region. Neuro: No focal neurological deficit. Chest: Unremarkable. External Genitalia: Deferred. Rectal: Deferred. Laboratory Data: Alcohol level 68. Tylenol level less than 2. Salicylate level less than 1.7. Urine toxicology screen negative. Urinalysis negative. Yesterday, sodium 144, potassium 4.5, chloride 109, bicarb 24, BUN 24, creatinine 1.10, glucose 76, magnesium 1.9. Liver function tests unremarkable. ProBNP 503. Lipase 39. TSH 3.18. Troponin less than 0.02 x3. INR 0.95. This morning, sodium 139, potassium 4.2, chloride 108, bicarb 25, BUN 26, creatinine 1.10, glucose 108. Yesterday, white count 3.9, hemoglobin 12.3, platelets 154. This morning, white count 4.3, hemoglobin 10.8, platelets 127. Chest x-ray done yesterday in the emergency room shows no evidence of any acute abnormality. CAT scan of the head and cervical spine, no acute intracranial changes detected. No cervical fracture. Pelvis x-ray, no evidence of any fracture. EKG, normal sinus rhythm, normal EKG. Impression: 1. Generalized weakness. 2. Anemia. 3. Thrombocytopenia. 4. Alcohol abuse. 5. Peripheral neuropathy. 6. Hypertension. 7. Hypothyroidism. 8. Hyperlipidemia. 9. Osteoarthritis, multiple sites. Plan: Admit the patient to hospital for further evaluation and management of this problem. We will go ahead and continue her home medications per order. The patient was started on IV fluid with thiamine and multivitamin and we will continue that. We will continue her home medications per order. We will consult Physical Therapy to help ambulate the patient. Consult Social Service to help with discharge planning. I did talk to the patient and recommended that she should consider either going to halfway facility or assisted care facility, and she will communicate with her son, and nurse was present during this discussion and she will assist the patient and son with all this information, and we will have Social Service assist with discharge planning. SCD will be ordered for DVT prophylaxis, and we will go ahead and monitor her blood work. KETAN/EDDY Voice ID: [id number] DANIELLE
[2017-11-28] MEDS: FOLIC ACID 1 MG, MULTIVITAMINS INJ 10 ML, THIAMINE HCL 100 MG in NA CHLORIDE 0.9% 1,000 ML IV SCH (17:36)
[2017-11-28] MEDS: MIRTAZAPINE 15 MG TAB PO SCH (21:46)
[2017-11-29 05:24] LABS: Absolute Lymphocytes (CBC) 0.8 K/uL (0.7-4.9); Absolute Monocytes 0.4 K/uL (0.1-1.3); Absolute Neutrophil 2.9 K/uL (1.8-8.0); Basophils % 0.5 % (0-1.3); Eosinophils % 3.2 % (0-4.4); Hematocrit 31.7 % (36.0-45.0); Lymphocytes % 19.7 % (15.3-44.8); MCH 36.1 pg (27.0-35.0); MCV 103.5 fL (80-100); MPV 9.2 fL (7.6-11.3); Monocytes % 8.9 % (3.3-12.3); RBC Red Blood Cell Count 3.07 M/uL (3.86-4.86)
[2017-11-29] MEDS: PANTOPRAZOLE 40MG TABLET PO SCH (05:30)
[2017-11-29] MEDS: LEVOTHYROXINE SOD 0.1 MG TAB PO SCH (05:30)
[2017-11-29 05:33] LABS: Magnesium 1.8 mg/dL (1.8-2.4); Potassium 3.9 mmol/L (3.5-5.1)
--- NOTE | 2017-11-29 06:51 | EKG ---
Test Date: 2017-11-28 Test Time: 08:43:14 Clinching Machine Operator: EVAN MEASUREMENT RESULTS: Intervals: Rate: 87 KS: 158 QRSD: 72 QT: 356 QTc: 428 Rea: P: 11 KS: 158 QRS: -14 T: 7 INTERPRETIVE STATEMENTS: Normal sinus rhythm Inferior infarct, age undetermined ST & T wave abnormality, consider anterior ischemia Abnormal ECG Compared to ECG 11/27/2017 14:13:52 Myocardial infarct finding now present ST (T wave) deviation now present Possible ischemia now present Electronically Signed On 11-29-17 06:50:39 CDT by Timo Mccray
[2017-11-29] MEDS: FE SULF/FA/VIT B COMP & C TAB PO SCH (08:57)
[2017-11-29] MEDS: MAGNESIUM OXIDE 400 MG TAB PO SCH (08:57)
[2017-11-29] MEDS: GABAPENTIN 100 MG CAP PO SCH ×2 (08:57→20:17)
[2017-11-29] MEDS: TOLTERODINE LA 4 MG CAP PO SCH (08:57)
[2017-11-29] MEDS: SERTRALINE HCL 100 MG TAB PO SCH (08:58)
[2017-11-29] MEDS: SERTRALINE HCL 50 MG TAB PO SCH (08:58)
[2017-11-29] MEDS: ASPIRIN EC 81 MG TAB PO SCH (08:58)
[2017-11-29] MEDS: FOLIC ACID 1 MG, MULTIVITAMINS INJ 10 ML, THIAMINE HCL 100 MG in NA CHLORIDE 0.9% 1,000 ML IV SCH (17:00)
[2017-11-29] MEDS: MIRTAZAPINE 15 MG TAB PO SCH (20:17)
[2017-11-29 21:14] VITALS: O2SAT 97
--- NOTE | 2017-11-30 01:42 | PN ---
Date of Progress Note: 11/29/2017 Subjective: The patient was seen this morning for followup, lying in bed, not in distress. Denied a ny new complaints. No abdominal pain, chest pain, or shortness of breath. Objective: Vital Signs: Reviewed. HEENT: Unremarkable. Lungs: Clear to auscultation. Heart: Sounds normal. Abdomen: Soft. Bowel sounds normal. No guarding, rigidity, tenderness, or distention. Extremities: No leg edema. Laboratory Data: Reviewed. Impression: 1.Altered mental status, resolved. 2.Generalized weakness. 3.Alcohol abuse. 4.Hypertension. 5.Hypothyroidism. Plan: We will continue current metoprolol. Physical therapy to help ambulate the patient. We will see her tomorrow for followup. Today, discharge order was written for the patient to go to nursing [facility] as my understanding was that Social Service has arranged for long-term placement using facilit y of the patient's choice in [place], but as of this evening, I have learned from nursing staff that arrangements have not been, so we will see her tomorrow morning for followup. Her blood pressure wa s slightly on the higher side this morning. We will see how it is by tomorrow morning and then we will make decision if we need to go up on the dose of m etoprolol or not. KETAN/MODL Voice ID: [id number] Report ID: [id number]
[2017-11-30] MEDS: LEVOTHYROXINE SOD 0.1 MG TAB PO SCH (05:35)
[2017-11-30] MEDS: PANTOPRAZOLE 40MG TABLET PO SCH (05:35)
[2017-11-30] MEDS: ASPIRIN EC 81 MG TAB PO SCH (09:00)
[2017-11-30] MEDS: METOPROLOL TAR 25 MG TAB PO SCH ×2 (09:36→17:12)
[2017-11-30] MEDS: FE SULF/FA/VIT B COMP & C TAB PO SCH (09:36)
[2017-11-30] MEDS: MAGNESIUM OXIDE 400 MG TAB PO SCH (09:37)
[2017-11-30] MEDS: GABAPENTIN 100 MG CAP PO SCH (09:37)
[2017-11-30] MEDS: SERTRALINE HCL 100 MG TAB PO SCH (09:37)
[2017-11-30] MEDS: SERTRALINE HCL 50 MG TAB PO SCH (09:37)
[2017-11-30] MEDS: TOLTERODINE LA 4 MG CAP PO SCH (09:37)
[2017-11-30 12:32] VITALS: TEMP 98.2
[2017-11-30 17:13] VITALS: BP 116/88
--- NOTE | 2017-12-01 08:34 | DS ---
Date of Discharge: 11/30/2017 Disposition: Discharged to go to group home. Physical Examination: HEENT: Unremarkable. Lungs: Clear to auscultation. Heart: Sounds normal. Abdomen: Soft. Bowel sounds normal. No guarding, rigidity, tenderness, or distention. Extremities: No leg edema. Laboratory Data: White count upon admission was 3.9, hemoglobin 12.3, platelets 154. Yesterday, whi te count 4.2, hemoglobin 11.1, platelets 102. Sodium 143 yesterday with potassium 3.9, chloride 109, bicarb 27, BUN 24, creatinine 1.10, glucose 98, magnesium 1.8. Upon admission, BUN 24, creatinine 1 .10, sodium 144, potassium 4.5. Liver function tests unremarkable. TSH 3.18. Troponin, less than 0 .02. Hospital Course: A 77-year-old female patient admitted to the hospital with fall and generalized wea kness. Please see dictated H and P for more information. The patient has longstanding history of al cohol use and she was found on the floor, was not able to get up and was brought into emergency room. After she was evaluated in the ER, she was admitted to the hospital. The patient was given IV flui d. Her home medications were continued. Physical Therapy was consulted and it was recommended for p atient to go to [facility] or assisted care facility, and Social Service communicated w ith family member and the patient and made arrangements for patient to go to [facility] her choice, and today she was discharged in stable condition. The patient to continue all her pr ior home medications. Consult Physical Therapy and Occupational Therapy at group home, and CBC and Chem-7 in 1 week and then as per group home physician. Final Diagnoses: 1.Generalized weakness. 2.Anemia. 3.Thrombocytopenia. 4.Alcohol abuse. 5.Peripheral neuropathy. 6.Hypertension. 7.Hypothyroidism. 8.Hyperlipidemia. 9.Osteoarthritis, multiple sites. KETAN/MODL Voice ID: [id number] Report ID: [id number]
== END 2017-11-30 17:50 | DRG 948 ==
LOC: ER 14:01 → ERHOLD 16:41 → 4TH 18:00
PROVIDERS: ADMIT Internal Medicine; ATTEND Internal Medicine
DX: R53.1 Weakness (principal); F10.129 Alcohol abuse with intoxication, unspecified; D64.9 Anemia, unspecified; D69.6 Thrombocytopenia, unspecified; G62.9 Polyneuropathy, unspecified; I10 Essential (primary) hypertension; E03.9 Hypothyroidism, unspecified; E78.5 Hyperlipidemia, unspecified; K21.9 Gastro-esophageal reflux disease without esophagitis; M15.9 Polyosteoarthritis, unspecified; W06.XXXA Fall from bed, initial encounter; Y92.003 Bedroom of unspecified non-institutional (private) residence as the place of occurrence of the external cause; Z88.2 Allergy status to sulfonamides; Z79.82 Long term (current) use of aspirin; F32.9 Major depressive disorder, single episode, unspecified
CPT/HCPCS: 36415; 51702; 70450; 71045; 72125; 72170; 80048; 80076; 80307; 80320; 80329; 81003; 82550; 82553; 83690; 83735; 83880; 84443; 84484; 85025; 85610; 85730; 93005; 96361; 96365; 96375; 97163; 99285; J3411; J7030

== ENCOUNTER 2018-09-18 08:24 | Emergency (ER) | payer OTHER ==
[2018-09-18] MEDS ORDERED: TRAMADOL HCL 50 MG TAB ONE (09:19)
--- NOTE | 2018-09-18 10:09 | RAD REPORT ---
EXAM DESCRIPTION: RAD - Knee Left 3 View - 09/18/2018 9:25 am CLINICAL HISTORY: Left knee pain status post injury FINDINGS: No fracture or dislocation is seen. Marked osteoarthritis. If patient continues have symptoms to suggest an occult fracture, ligamentous or meniscal injury MRI would be recommended
--- NOTE | 2018-09-18 10:12 | RAD REPORT ---
EXAM DESCRIPTION: RAD - Knee Right 3 View - 09/18/2018 9:25 am CLINICAL HISTORY: Right knee pain status post injury FINDINGS: No fracture or dislocation is seen. Moderate to marked osteoarthritis If patient continues have symptoms to suggest an occult fracture, ligamentous or meniscal injury then MRI would be recommended
--- NOTE | 2018-09-18 10:20 | ER ---
Nurse's Notes [facility] Name: Milagro Canela Age: 78 yrs Sex: Female : 1940 Arrival Date: 09/18/2018 Time: 08:29 Bed 13 Private MD: Diagnosis: Osteoarthritis of knee-bilateral;Other fall on same level Presentation: 09/18 08:29 Presenting complaint: EMS states: Fall from standing once yesterday and again this ss morning. Pt states that it is because she has bad knees. Denies new pain from recent falls. 08:29 Transition of care: patient was not received from another setting of care. Onset of ss symptoms was September 17, 2018. Risk Assessment: Do you want to hurt yourself or someone else? Patient reports no desire to harm self or others. Initial Sepsis Screen: Does the patient meet any 2 criteria? No. Patient's initial sepsis screen is negative. Does the patient have a suspected source of infection? No. Patient's initial sepsis screen is negative. Care prior to arrival: None. 08:29 Method Of Arrival: EMS: [facility] 08:29 Acuity: ADRIANNA 3 ss Historical: - Allergies: 08:31 Sulfa (Sulfonamide Antibiotics) (rash); ss - PMHx: 08:31 bladder tumors; Depression; Hypertension; Hypothyroidism; ss - PSHx: 08:31 Hysterectomy; Appendectomy; ss - Immunization history:: Adult Immunizations up to date. - Social history:: Smoking status: Patient/guardian denies using tobacco. - Ebola Screening: : Patient denies exposure to infectious person Patient denies travel to an Ebola-affected area in the 21 days before illness onset. Screenin:00 Abuse screen: Denies threats or abuse. Denies injuries from another. Nutritional ph screening: No deficits noted. Tuberculosis screening: No symptoms or risk factors identified. Fall Risk None identified. Assessment: 09:00 General: Appears in no apparent distress. comfortable, Behavior is calm, cooperative, ph appropriate for age. Pain: Complains of pain in right knee. Neuro: Level of Consciousness is awake, alert, obeys commands, Oriented to person, place, time, situation. Cardiovascular: Capillary refill < 3 seconds in bilateral fingers Patient's skin is warm and dry. Edema is 2+ to left ankle, left foot, right ankle and right foot. Respiratory: Airway is patent Respiratory effort is even, unlabored, Respiratory pattern is regular, symmetrical. Derm: Skin is intact, Skin is pink, warm \T\ dry. Musculoskeletal: Circulation, motion, and sensation intact. Range of motion: intact in all extremities. 10:00 Reassessment: Patient appears in no apparent distress at this time. Patient and/or ph family updated on plan of care and expected duration. Pain level reassessed. Pt resting quietly w/ eyes closed, respirations even and unlabored, awakens easily, awaiting Xray results. 11:00 Reassessment: Patient appears in no apparent distress at this time. Patient and/or ph family updated on plan of care and expected duration. Pain level reassessed. Patient is alert, oriented x 3, equal unlabored respirations, skin warm/dry/pink. Pt resting quietly, awaiting ride home, spoke w/ son on phone who stated that he is on his way. Vital Signs: 08:31 BP 130 / 84; Pulse 87; Resp 18; Temp 98.3(O); Pulse Ox 100% on R/A; Weight 65.32 kg; Height 4 ft. 11 in. (149.86 cm); Pain 4/10; 09:21 BP 129 / 74; Pulse 76; Resp 18; Temp 98.0(O); Pulse Ox 100% ; mh5 10:30 BP 121 / 76; Pulse 74; Resp 18; Temp 97.8; Pulse Ox 98% on R/A; Pain 2/10; ph 08:31 Body Mass Index 29.08 (65.32 kg, 149.86 cm) ED Course: 08:29 Patient arrived in ED. ss 08:31 Arm band placed on right wrist. ss 08:33 Jean Huang NP is PHCP. pm1 08:33 Wilder Schmidt MD is Attending Physician. pm1 08:35 Triage completed. ss 08:48 Rosi Bolanos, RN is Primary Nurse. ph 09:00 Patient has correct armband on for positive identification. Bed in low position. Call light in reach. Side rails up X 1. monitoring coordinator on. Pulse ox on. Door closed. Noise minimized. Warm blanket given. 09:26 Knee Left 3 View XRAY In Process Unspecified. EDMS 09:26 Knee Right 3 View XRAY In Process Unspecified. EDMS 10:19 Chapin Moore MD is Referral Physician. pm1 11:00 No provider procedures requiring assistance completed. Patient did not have IV access ph during this emergency room visit. Administered Medications: 09:06 Drug: traMADol 50 mg Route: PO; ph 09:30 Follow up: Response: No adverse reaction; Pain is decreased ph Outcome: 10:20 Discharge ordered by MD. pm1 11:17 Patient left the ED. ph 11:17 Discharged to home via wheelchair, with family. ph 11:17 Condition: good 11:17 Discharge instructions given to patient, family, Instructed on discharge instructions, follow up and referral plans. Demonstrated understanding of instructions, follow-up care. Signatures: Dispatcher [employer] EDNY Lilly Mcghee RN RN ss Hall, Patricia, RN RN ph Marinas, Patrick, AVINASH CELL CHANGER pm1 Amy Yao [facility]
--- NOTE | 2018-09-18 10:20 | EDPHYS ---
Physician Documentation [facility] Name: Milagro Canela Age: 78 yrs Sex: Female : 1940 Arrival Date: 09/18/2018 Time: 08:29 Bed 13 Private MD: ED Physician Wilder Schmidt HPI: 09/18 08:45 This 78 yrs old Female presents to ER via EMS with complaints of Fall Injury. pm1 08:45 Details of fall: The patient fell from an upright position, while standing. Onset: The pm1 symptoms/episode began/occurred this morning. Associated injuries: The patient sustained pain to right and left knee. Severity of symptoms: in the emergency department the symptoms are unchanged. The patient has experienced similar episodes in the past, chronic pain to right and left knee. Patient with a fall yesterday and today as a result of her "bad knees." Patient has been told in the past that she may need bilateral knee surgery but surgery was not performed at that time. Patient stood up yesterday and today and she said due to the knee pain her knees gave way and she fell. Yesterday and today she fell on her buttocks. No buttocks or back pain. No headache, head injury, LOC, neck pain, AMS. or vomiting. No symptoms of dizziness, chest pain , or shortness of breath prior to falls. Historical: - Allergies: 08:31 Sulfa (Sulfonamide Antibiotics) (rash); ss - PMHx: 08:31 bladder tumors; Depression; Hypertension; Hypothyroidism; ss - PSHx: 08:31 Hysterectomy; Appendectomy; ss - Immunization history:: Adult Immunizations up to date. - Social history:: Smoking status: Patient/guardian denies using tobacco. - Ebola Screening: : Patient denies exposure to infectious person Patient denies travel to an Ebola-affected area in the 21 days before illness onset. ROS: 08:45 Constitutional: Negative for fever, chills, and weight loss, Eyes: Negative for injury, pm1 pain, redness, and discharge, ENT: Negative for injury, pain, and discharge, Neck: Negative for injury, pain, and swelling, Cardiovascular: Negative for chest pain, palpitations, and edema, Respiratory: Negative for shortness of breath, cough, wheezing, and pleuritic chest pain, Abdomen/GI: Negative for abdominal pain, nausea, vomiting, diarrhea, and constipation, Back: Negative for injury and pain, : Negative for injury, bleeding, discharge, and swelling. 08:45 Skin: Negative for injury, rash, and discoloration, Neuro: Negative for headache, weakness, numbness, tingling, and seizure. 08:45 MS/extremity: Positive for pain, of the right knee and left knee, Negative for deformity. Exam: 08:45 Constitutional: This is a well developed, well nourished patient who is awake, alert, pm1 and in no acute distress. Head/Face: Normocephalic, atraumatic. Eyes: Pupils equal round and reactive to light, extra-ocular motions intact. Lids and lashes normal. Conjunctiva and sclera are non-icteric and not injected. Cornea within normal limits. Periorbital areas with no swelling, redness, or edema. ENT: Nares patent. No nasal discharge, no septal abnormalities noted. Tympanic membranes are normal and external auditory canals are clear. Oropharynx with no redness, swelling, or masses, exudates, or evidence of obstruction, uvula midline. Mucous membranes moist. Neck: Trachea midline, no thyromegaly or masses palpated, and no cervical lymphadenopathy. Supple, full range of motion without nuchal rigidity, or vertebral point tenderness. No Meningismus. Chest/axilla: Normal chest wall appearance and motion. Nontender with no deformity. No lesions are appreciated. Cardiovascular: Regular rate and rhythm with a normal S1 and S2. No gallops, murmurs, or rubs. Normal PMI, no JVD. No pulse deficits. Respiratory: Lungs have equal breath sounds bilaterally, clear to auscultation and percussion. No rales, rhonchi or wheezes noted. No increased work of breathing, no retractions or nasal flaring. Abdomen/GI: Soft, non-tender, with normal bowel sounds. No distension or tympany. No guarding or rebound. No evidence of tenderness throughout. Back: No spinal tenderness. No costovertebral tenderness. Full range of motion. Skin: Warm, dry with normal turgor. Normal color with no rashes, no lesions, and no evidence of cellulitis. 08:45 Musculoskeletal/extremity: Extremities: grossly normal except: noted in the right knee and left knee: Pain with flexion of knees, There is no evidence of tenderness, Circulation is intact in all extremities. Sensation intact. 08:45 Neuro: Orientation: is normal, Motor: is normal, moves all fours, Sensation: is normal, no obvious gross deficits. Vital Signs: 08:31 BP 130 / 84; Pulse 87; Resp 18; Temp 98.3(O); Pulse Ox 100% on R/A; Weight 65.32 kg; ss Height 4 ft. 11 in. (149.86 cm); Pain 4/10; 09:21 BP 129 / 74; Pulse 76; Resp 18; Temp 98.0(O); Pulse Ox 100% ; mh5 10:30 BP 121 / 76; Pulse 74; Resp 18; Temp 97.8; Pulse Ox 98% on R/A; Pain 2/10; ph 08:31 Body Mass Index 29.08 (65.32 kg, 149.86 cm) ss MDM: 08:34 Patient medically screened. pm1 10:15 Data reviewed: vital signs. Data interpreted: Pulse oximetry: on room air is 100 %. pm1 Interpretation: normal. Counseling: I had a detailed discussion with the patient and/or guardian regarding: the historical points, exam findings, and any diagnostic results supporting the discharge/admit diagnosis, radiology results, the need for outpatient follow up, for definitive care, a orthopedic surgeon, to return to the emergency department if symptoms worsen or persist or if there are any questions or concerns that arise at home. 09/18 08:43 Order name: Knee Left 3 View XRAY; Complete Time: 10:15 pm1 09/18 08:43 Order name: Knee Right 3 View XRAY; Complete Time: 10:15 pm1 Administered Medications: 09:06 Drug: traMADol 50 mg Route: PO; ph 09:30 Follow up: Response: No adverse reaction; Pain is decreased ph Disposition: 09/19 08:40 Co-signature as Attending Physician, Wilder Schmidt MD I agree with the assessment and fritz plan of care. Disposition: 09/18/18 10:20 Discharged to Home. Impression: Osteoarthritis of knee - bilateral, Other fall on same level. - Condition is Stable. - Medication Reconciliation Form, Thank You Letter, Antibiotic Education, Prescription Opioid Use form. - Follow up: Emergency Department; When: As needed; Reason: Worsening of condition. Follow up: Chapin Moore MD; When: 2 - 3 days; Reason: Recheck today's complaints, Continuance of care, Re-evaluation by your physician. - Problem is new. - Symptoms have improved. Signatures: Dispatcher [employer] EDWilder Mejias MD MD cha Smirch, Shelby, RN RN Rosi Bolanos RN RN Jean Huang, DRUG AND ALCOHOL COUNSELLOR DRUG AND ALCOHOL COUNSELLOR pm1 Corrections: (The following items were deleted from the chart) 09/18 11:17 10:20 09/18/2018 10:20 Discharged to Home. Impression: Osteoarthritis of knee - ph bilateral; Other fall on same level. Condition is Stable. Forms are Medication Reconciliation Form, Thank You Letter, Antibiotic Education, Prescription Opioid Use. Follow up: Emergency Department; When: As needed; Reason: Worsening of condition. Follow up: Chapin Moore; When: 2 - 3 days; Reason: Recheck today's complaints, Continuance of care, Re-evaluation by your physician. Problem is new. Symptoms have improved. pm1
[2018-09-18 12:03] VITALS: O2SAT 100
[2018-09-18 12:04] VITALS: BP 129/74; TEMP 98
== END 2018-09-18 11:17 | disposition home or self-care (01) ==
LOC: ER 08:24
DX: M17.0 Bilateral primary osteoarthritis of knee (principal); W18.30XA Fall on same level, unspecified, initial encounter; Y93.9 Activity, unspecified; Y92.9 Unspecified place or not applicable; Z88.2 Allergy status to sulfonamides; I10 Essential (primary) hypertension
CPT/HCPCS: 99284

== ENCOUNTER 2018-12-11 08:43 | Day surgery (SDC) | payer OTHER ==
[2018-12-11] MEDS ORDERED: CYCLOPENTOLATE 1% OPTH 2 ML ONE (08:55)
[2018-12-11] MEDS: PHENYLEPHRINE 10% OPTH 5ML ONE ×3 (09:16→09:35)
[2018-12-11] MEDS ORDERED: CYCLOPENTOLATE 1% OPTH 2 ML OPTH ONE ×2 (09:21→09:35)
[2018-12-11] MEDS: NA CHLORIDE 0.9% 500 ML ONE (09:30)
[2018-12-11] MEDS ORDERED: PROPOFOL 200 MG/20 ML VIAL IV ONE (10:21)
[2018-12-11] MEDS ORDERED: LIDOCAINE 2% MPF 5 ML VIAL ONE (10:22)
[2018-12-11] MEDS: TETRACAINE HCL 0.5% 4ML OPTH ONE ×2 (10:37→10:46)
[2018-12-11] MEDS: BUPIVACAINE 0.25% PF 10 ML VIAL ONE ×2 (10:37→10:46)
[2018-12-11] MEDS: LIDOCAINE 2% MPF 5 ML VIAL ONE ×2 (10:37→10:46)
[2018-12-11] MEDS ORDERED: NS 0.9% VIAL 10 ML ONE (10:40)
[2018-12-11] MEDS ORDERED: DUOVISC 1 KIT OPTH ONE (10:40)
[2018-12-11] MEDS ORDERED: EPINEPHRINE/PF 1 MG/ML AMP ONE (10:40)
[2018-12-11] MEDS ORDERED: BALANCED SALT IRRIG PLAIN 500 ML BTL IRR ONE (10:40)
[2018-12-11] MEDS: MOXIFLOXACIN HCL 10 DROPS/ML **OR USE OPTH ONE ×2 (10:54→11:18)
--- NOTE | 2018-12-11 11:26 | P.BOP ---
Preoperative diagnosis: Combined form of cataract OD Postoperative diagnosis: Same Primary procedure: Phacoemulsification with IOL OD Estimated blood loss: None Anesthesia: Local (Subtenon's infusion with anesthesia for cataract surgery) Complications: None Implants: [id number] +26.0 Transferred to: Other (Day surgery) Condition: Good
[2018-12-11 11:39] VITALS: TEMP 97.2; O2SAT 96
[2018-12-11 11:53] VITALS: BP 115/70
--- NOTE | 2018-12-11 22:28 | OP ---
Date of Procedure: 12/11/2018 Surgeon: Lien Hills MD Anesthesiologist: Sari Rico CRNA and Sim Salinas MD. Preoperative Diagnosis: Nuclear sclerotic cataract, right eye. Operation Performed: Phacoemulsification with intraocular lens implant, right eye. Anesthesia: Per cataract surgery. Complications: None. Description Of Procedure: In day surgery, the patient was prepped with Betadine and draped. A conju nctival incision was made in the inferior nasal quadrant with Margi scissors. A sub-Tenon block c onsisting of a 1:1 mixture of 2% Xylocaine and 0.25% bupivacaine was placed through the conjunctival incision with a blunt cannula. A Honan balloon was placed over the eye and the patient was transferr ed to the operating room. In the operating room the patient was prepped and draped in the usual sterile fashion for ophthalmic surgery. A lid speculum was placed in the right eye. Two paracentesis sites were made superiorly an d inferiorly in the limbal cornea. Viscoat was placed in the anterior chamber and a crescent blade w as used to make a corneal groove and tunnel, and a keratome was used to enter the anterior chamber. Provisc was placed in the anterior chamber and a 360 degree capsulotomy was performed with a cystitom e. The lens was hydrodissected with BSS and rotated freely. The lens was removed with a stop and ch op technique. 8.54 phaco CDE was used to remove the lens. Residual cortex was removed with the irri gation and aspiration. Provisc was placed in the capsular bag. A ZCB00 +26.0 lens was placed in the capsular bag without complications. Irrigation and aspiration was used to remove residual viscoelas tic. The paracentesis sites were hydrated with BSS. The wound and paracentesis sites were inspected and found to be watertight. Vigamox 0.07 cc was placed intracamerally at the end of the procedure. The eye was irrigated with balanced salt solution. The eye was patched with a soft cotton patch and Ramirez metal shield. The patient was returned to day surgery in good condition. Comments: Discharge Instructions: Ms. Canela is discharged to home in good condition and is to follow up with Dr Yariel Hills in the morning. ELIZA/EDDY Voice ID: [id number] Report ID: [id number]
== END 2018-12-11 12:15 | disposition home or self-care (01) ==
LOC: OR 08:43
PROVIDERS: ATTEND Ophthalmology Retina Specialist
PROC: 08RJ3JZ Replacement of Right Lens with Synthetic Substitute, Percutaneous Approach (ICD-10-PCS; principal; 2018-12-11 10:15)
DX: H25.11 Age-related nuclear cataract, right eye (principal); H04.129 Dry eye syndrome of unspecified lacrimal gland; I10 Essential (primary) hypertension; K21.9 Gastro-esophageal reflux disease without esophagitis; M79.7 Fibromyalgia; E07.9 Disorder of thyroid, unspecified; E78.00 Pure hypercholesterolemia, unspecified; L40.9 Psoriasis, unspecified; Z79.82 Long term (current) use of aspirin; Z88.2 Allergy status to sulfonamides; Z83.511 Family history of glaucoma; Z82.49 Family history of ischemic heart disease and other diseases of the circulatory system; Z82.3 Family history of stroke
CPT/HCPCS: 66984; J2704; J0171

== ENCOUNTER 2019-04-09 17:34 | Emergency (ER) | payer OTHER ==
[2019-04-09] MEDS ORDERED: ALBUTEROL 2.5 MG/3 ML NEB SOL ONE (18:29)
[2019-04-09 19:03] LABS: Absolute Lymphocytes (CBC) 1.1 K/uL (0.7-4.9); Basophils % 0.7 % (0-1.3); Lymphocytes % 13.9 % (15.3-44.8); MPV 9.3 fL (7.6-11.3); RBC Red Blood Cell Count 2.93 M/uL (3.86-4.86)
[2019-04-09 19:04] LABS: Protime INR 0.99
[2019-04-09 19:19] LABS: ALT/SGPT 23 U/L (12-78); AST/SGOT 13 U/L (15-37); Albumin 3.6 g/dL (3.4-5.0); Alkaline Phosphatase 62 U/L (45-117); BUN Blood Urea Nitrogen 40 mg/dL (7-18); Bicarbonate 32 mmol/L (21-32); Bilirubin Direct < 0.1 mg/dL (0-0.2); Bilirubin Total 0.3 mg/dL (0.2-1.0); Glucose Level 115 mg/dL (74-106); Magnesium 1.8 mg/dL (1.8-2.4); NT PRO-BNP 115 pg/mL (<450); Potassium 4.2 mmol/L (3.5-5.1); Protein, Total 6.3 g/dL (6.4-8.2); Sodium Level 136 mmol/L (136-145); Troponin (Emerg Dept Use Only) < 0.02 ng/mL (0.0-0.045)
--- NOTE | 2019-04-09 19:33 | RAD REPORT ---
EXAM DESCRIPTION: [place] Single View04/09/2019 6:45 pm CLINICAL HISTORY: cough COMPARISON: 2018 FINDINGS: The lungs appear clear of acute infiltrate. The heart is normal size A small hiatal hernia is present IMPRESSION: No acute abnormalities displayed
[2019-04-09] MEDS ORDERED: NA CHLORIDE 0.9% 1,000 ML ONE (20:04)
[2019-04-09] MEDS ORDERED: LIDOCAINE 4% PATCH ONE (20:54)
--- NOTE | 2019-04-09 22:35 | ER ---
Nurse's Notes [facility] Name: Milagro Canela Age: 78 yrs Sex: Female : 1940 Arrival Date: 04/09/2019 Time: 17:40 Bed 15 Private MD: Diagnosis: Dehydration;Acute upper respiratory infection, unspecified Presentation: 04/09 17:41 Presenting complaint: Patient states: cough x 1 month and fatigue/ sore throat x 2-3 ss days. Pt is concerned because she lives by herself at home and has not been able to walk with her walker. Denies fever. Transition of care: patient was not received from another setting of care. Onset of symptoms was February 2019. Risk Assessment: Do you want to hurt yourself or someone else? Patient reports no desire to harm self or others. Initial Sepsis Screen: Does the patient meet any 2 criteria? No. Patient's initial sepsis screen is negative. Does the patient have a suspected source of infection? No. Patient's initial sepsis screen is negative. Care prior to arrival: None. 17:41 Method Of Arrival: EMS: [facility] 17:41 Acuity: ADRIANNA 3 ss Historical: - Allergies: 17:45 Sulfa (Sulfonamide Antibiotics) (rash); ss 17:45 Ranitidine HCl; ss - PMHx: 17:45 bladder tumors; Depression; Hypertension; Hypothyroidism; ss - PSHx: 17:45 Hysterectomy; Appendectomy; breast augmentation and liposuction; ss - Immunization history:: Adult Immunizations up to date. - Social history:: Smoking status: Patient/guardian denies using tobacco. - Ebola Screening: : Patient denies exposure to infectious person Patient denies travel to an Ebola-affected area in the 21 days before illness onset. Screenin:30 Abuse screen: Denies threats or abuse. Nutritional screening: No deficits noted. em Tuberculosis screening: No symptoms or risk factors identified. Fall Risk None identified. Assessment: 18:33 General: Appears in no apparent distress. comfortable, Behavior is calm, cooperative, em Denies fever. Pain: Complains of pain in throat and body aches. Neuro: Level of Consciousness is awake, alert, obeys commands, Oriented to person, place, time, situation, Appropriate for age. Cardiovascular: Capillary refill < 3 seconds Patient's skin is warm and dry. Respiratory: Reports cough that is non-productive, Airway is patent Respiratory effort is even, unlabored, Respiratory pattern is regular, symmetrical. Derm: Skin is intact, is healthy with good turgor, Skin is pink, warm \T\ dry. Musculoskeletal: Capillary refill < 3 seconds, Range of motion: intact in all extremities. 18:45 Reassessment: The previous assessment is accurate, call light remains within reach. ss 19:00 Reassessment: Patient appears in no apparent distress at this time. Patient and/or jb4 family updated on plan of care and expected duration. Pain level reassessed. Patient is alert, oriented x 3, equal unlabored respirations, skin warm/dry/pink. 19:57 Reassessment: Patient appears in no apparent distress at this time. Patient and/or jb4 family updated on plan of care and expected duration. Pain level reassessed. Patient is alert, oriented x 3, equal unlabored respirations, skin warm/dry/pink. Family is at the bedside. 21:00 Reassessment: Patient appears in no apparent distress at this time. Patient and/or jb4 family updated on plan of care and expected duration. Pain level reassessed. Patient is alert, oriented x 3, equal unlabored respirations, skin warm/dry/pink. 22:30 Reassessment: Patient appears in no apparent distress at this time. Patient and/or jb4 family updated on plan of care and expected duration. Pain level reassessed. Patient is alert, oriented x 3, equal unlabored respirations, skin warm/dry/pink. PT ambulated approximately 25 ft before verbalizing inability to continue and was wheeled back to her bed. PT verbalized wish to go home, Provider notified. Family states patient has a home day care provider that is present with her all day, and that patient has a walker and a wheelchair for use at home. 23:15 Reassessment: Patient appears in no apparent distress at this time. Patient and/or jb4 family updated on plan of care and expected duration. Pain level reassessed. Patient is alert, oriented x 3, equal unlabored respirations, skin warm/dry/pink. PT assisted to vehicle via wheelchair. Vital Signs: 17:45 BP 112 / 75; Pulse 93; Resp 18; Temp 98.2(O); Pulse Ox 95% on R/A; Weight 72.57 kg; Height 4 ft. 10 in. (147.32 cm); 18:56 BP 106 / 76; Pulse 87; Resp 18; Pulse Ox 99% on R/A; em 19:45 BP 98 / 67; Pulse 85; Resp 16; Pulse Ox 97% on R/A; jb4 21:00 BP 116 / 63; Pulse 82; Resp 16; Pulse Ox 100% on R/A; jb4 22:45 BP 104 / 68; Pulse 90; Resp 16; Pulse Ox 99% on R/A; jb4 17:45 Body Mass Index 33.44 (72.57 kg, 147.32 cm) ED Course: 17:40 Patient arrived in ED. ss 17:44 Triage completed. ss 17:45 Arm band placed on right wrist. ss 17:48 Donn Kahn LVN is Primary Nurse. em 17:56 Jean Huang GRANTS OFFICER is PHCP. pm1 17:56 Wilder Schmidt MD is Attending Physician. pm1 18:30 Patient has correct armband on for positive identification. Placed in gown. Bed in low em position. Call light in reach. Side rails up X2. Adult w/ patient. Pulse ox on. NIBP on. 18:56 EKG done, by ED staff, reviewed by Jean Huang NP. 3 23:15 No provider procedures requiring assistance completed. IV discontinued, intact, jb4 bleeding controlled, No redness/swelling at site. Pressure dressing applied. Administered Medications: 18:40 Drug: Albuterol 2.5 mg Route: Inhalation; em 20:06 Drug: NS 0.9% 1000 ml Route: IV; Rate: 1000 ml; Site: right antecubital; jb4 22:00 Follow up: Response: No adverse reaction; IV Status: Completed infusion; IV Intake: jb4 1000ml 21:01 Drug: Lidoderm 5 % (700 mg/patch) 1 patches {Note: administered to lower back.} Route: jb4 Topical; Site: affected area; 21:30 Follow up: Response: No adverse reaction; Pain is decreased jb4 Intake: 22:00 IV: 1000ml; Total: 1000ml. jb4 Outcome: 22:33 Discharge ordered by . pm1 23:15 Discharged to home via wheelchair, with family. jb4 23:15 Condition: stable 23:15 Discharge instructions given to patient, family, Instructed on discharge instructions, follow up and referral plans. medication usage, Demonstrated understanding of instructions, follow-up care, medications, Prescriptions given X 2. 23:17 Patient left the ED. jb4 Signatures: Donn Kahn, ASBESTOS CLOTH INSPECTOR ASBESTOS CLOTH INSPECTOR Lilly Person RN RN ss Jean Huang, GRANTS OFFICER GRANTS OFFICER pm1 Hugo Lynch RN RN jb4 Imelda Ruth 3 Corrections: (The following items were deleted from the chart) 17:47 17:41 Presenting complaint: Patient states: cough x 1 month and fatigue x 2-3 days. Pt ss is concerned because she lives by herself at home and has not been able to walk with her walker. Denies fever ss 19:58 19:45 BP 98 / 67; Pulse 16bpm; Resp 85bpm; Pulse Ox 97% RA; jb4 jb4 22:50 22:30 BP 104 / 68; Pulse 90bpm; Resp 16bpm; Pulse Ox 99%; jb4 jb4
--- NOTE | 2019-04-09 22:35 | EDPHYS ---
Physician Documentation [facility] Name: Milagro Canela Age: 78 yrs Sex: Female : 1940 Arrival Date: 04/09/2019 Time: 17:40 Bed 15 Private MD: ED Physician Wilder Schmidt HPI: 04/09 18:19 This 78 yrs old Female presents to ER via EMS with complaints of Cough, pm1 Fatigue. 18:19 The patient or guardian reports cough. Onset: The symptoms/episode began/occurred 1 pm1 month(s) ago, sometimes productive. Severity of symptoms: in the emergency department the symptoms are unchanged. Modifying factors: The symptoms are alleviated by nothing, the symptoms are aggravated by nothing. Associated signs and symptoms: Pertinent positives: sore throat, 1 episode of diarrhea 1 week ago, Pertinent negatives: chest pain, fever, vomiting, shortness of breath. The patient has been recently seen by a physician: with different complaint(s), eye surgery last week. 78 yo F presents to the ER with complaints of cough for 1 month that is productive sometimes. Currently not productive. She also has a had a sore throat for the past 2-3 days. Has a patient care representative that reports she has had decreased PO and intake for the past 1 week. Patient is concerned that she is feeling to fatigued and weak to walk around with her walker for the past 1 week. Historical: - Allergies: 17:45 Sulfa (Sulfonamide Antibiotics) (rash); ss 17:45 Ranitidine HCl; ss - PMHx: 17:45 bladder tumors; Depression; Hypertension; Hypothyroidism; ss - PSHx: 17:45 Hysterectomy; Appendectomy; breast augmentation and liposuction; ss - Immunization history:: Adult Immunizations up to date. - Social history:: Smoking status: Patient/guardian denies using tobacco. - Ebola Screening: : Patient denies exposure to infectious person Patient denies travel to an Ebola-affected area in the 21 days before illness onset. ROS: 18:19 Eyes: Negative for injury, pain, redness, and discharge, Neck: Negative for injury, pm1 pain, and swelling, Cardiovascular: Negative for chest pain, palpitations, and edema. 18:19 Abdomen/GI: Negative for abdominal pain, nausea, vomiting, diarrhea, and constipation, Back: Negative for injury and pain. 18:19 MS/Extremity: Negative for injury and deformity, Skin: Negative for injury, rash, and discoloration. 18:19 Constitutional: Positive for fatigue, decreased PO intake, Negative for body aches, fever. 18:19 ENT: Positive for sore throat, Negative for drainage from ear(s), ear pain. 18:19 Respiratory: Positive for cough, Negative for shortness of breath, wheezing. 18:19 Neuro: Positive for generalized weakness, Negative for dizziness, headache, numbness, tingling. Exam: 18:19 Constitutional: This is a well developed, well nourished patient who is awake, alert, pm1 and in no acute distress. Head/Face: Normocephalic, atraumatic. Eyes: Pupils equal round and reactive to light, extra-ocular motions intact. Lids and lashes normal. Conjunctiva and sclera are non-icteric and not injected. Cornea within normal limits. Periorbital areas with no swelling, redness, or edema. ENT: Nares patent. No nasal discharge, no septal abnormalities noted. Tympanic membranes are normal and external auditory canals are clear. Oropharynx with no redness, swelling, or masses, exudates, or evidence of obstruction, uvula midline. Mucous membranes moist. Neck: Trachea midline, no thyromegaly or masses palpated, and no cervical lymphadenopathy. Supple, full range of motion without nuchal rigidity, or vertebral point tenderness. No Meningismus. Chest/axilla: Normal chest wall appearance and motion. Nontender with no deformity. No lesions are appreciated. Cardiovascular: Regular rate and rhythm with a normal S1 and S2. No gallops, murmurs, or rubs. Normal PMI, no JVD. No pulse deficits. 18:19 Abdomen/GI: Soft, non-tender, with normal bowel sounds. No distension or tympany. No guarding or rebound. No evidence of tenderness throughout. Back: No spinal tenderness. No costovertebral tenderness. Full range of motion. Skin: Warm, dry with normal turgor. Normal color with no rashes, no lesions, and no evidence of cellulitis. MS/ Extremity: Pulses equal, no cyanosis. Neurovascular intact. Full, normal range of motion. 18:19 Respiratory: the patient does not display signs of respiratory distress, Respirations: normal, Breath sounds: rhonchi, that are mild, are heard diffusely. 18:19 Neuro: Orientation: is normal, Mentation: is normal, Motor: is normal, moves all fours, Sensation: is normal, no obvious gross deficits. Vital Signs: 17:45 BP 112 / 75; Pulse 93; Resp 18; Temp 98.2(O); Pulse Ox 95% on R/A; Weight 72.57 kg; ss Height 4 ft. 10 in. (147.32 cm); 18:56 BP 106 / 76; Pulse 87; Resp 18; Pulse Ox 99% on R/A; em 19:45 BP 98 / 67; Pulse 85; Resp 16; Pulse Ox 97% on R/A; jb4 21:00 BP 116 / 63; Pulse 82; Resp 16; Pulse Ox 100% on R/A; jb4 22:45 BP 104 / 68; Pulse 90; Resp 16; Pulse Ox 99% on R/A; jb4 17:45 Body Mass Index 33.44 (72.57 kg, 147.32 cm) ss MDM: 17:56 Patient medically screened. pm1 20:22 ED course: Patient complaining of her left sided sciatic pain radiating down her leg pm1 from lying in bed, will order lidocaine patch. 21:15 Counseling: I had a detailed discussion with the patient and/or guardian regarding: pm1 Patient offered admission to the hospital. Patient does not feel that she needs to stay in the hospital and wants to rehydrate at home. Requested that the patient wait for completion of her IV fluids and I will reassess the patient with ambulation around the ER. 21:56 Data reviewed: vital signs. Data interpreted: Pulse oximetry: on room air is 100 %. pm1 Interpretation: normal. 22:32 Counseling: I had a detailed discussion with the patient and/or guardian regarding: the pm1 historical points, exam findings, and any diagnostic results supporting the discharge/admit diagnosis, lab results, radiology results, the need for outpatient follow up, to return to the emergency department if symptoms worsen or persist or if there are any questions or concerns that arise at home. 22:32 ED course: Patient's sciatic pain improved with Lidoderm patch. Patient able to pm1 ambulate with walker in the ER and reports feeling better and stronger post completion of IV fluids. Patient does not want to be admitted to the hospital. Son present at bedside and agreeable to patient's plan to go home. Discussed rehydration and return precautions with the patient. 04/09 18:08 Order name: Basic Metabolic Panel pm1 04/09 18:08 Order name: CBC with Diff pm1 04/09 18:08 Order name: LFT's pm1 04/09 18:08 Order name: Magnesium pm1 04/09 18:08 Order name: NT PRO-BNP pm1 04/09 18:08 Order name: PT-INR pm1 04/09 18:08 Order name: Troponin (emerg Dept Use Only) pm1 04/09 18:08 Order name: Urine Microscopic Only pm1 04/09 18:08 Order name: Flu pm1 04/09 18:08 Order name: Strep pm1 04/09 19:06 Order name: Protime (+INR); Complete Time: 19:15 EDMS 04/09 19:07 Order name: CBC with Automated Diff; Complete Time: 19:15 EDMS 04/09 19:20 Order name: Basic Metabolic Panel; Complete Time: 19:57 EDMS 04/09 19:20 Order name: Liver (Hepatic) Function; Complete Time: 19:57 EDMS 04/09 18:08 Order name: XRAY Chest (1 view) pm1 04/09 18:08 Order name: EKG; Complete Time: 18:10 pm1 04/09 18:08 Order name: Cardiac monitoring; Complete Time: 18:48 pm1 04/09 18:08 Order name: EKG - Nurse/Tech; Complete Time: 19:01 pm1 04/09 18:08 Order name: IV Saline Lock; Complete Time: 18:48 pm1 04/09 18:08 Order name: Labs collected and sent; Complete Time: 18:48 pm1 04/09 18:08 Order name: O2 Per Protocol; Complete Time: 18:49 pm1 04/09 19:20 Order name: Troponin (Emerg Dept Use Only); Complete Time: 19:57 EDMS 04/09 19:20 Order name: NT PRO-BNP; Complete Time: 19:57 EDMS 04/09 19:20 Order name: Magnesium; Complete Time: 19:57 EDMS 04/09 19:20 Order name: Influenza Screen (A ; Complete Time: 19:57 EDMS 04/09 19:20 Order name: Group A Streptococcus Rapid Sc; Complete Time: 19:57 EDVT 04/09 19:43 Order name: RAD; Complete Time: 19:57 [facility] 04/09 18:08 Order name: O2 Sat Monitoring; Complete Time: 18:48 pm1 Administered Medications: 18:40 Drug: Albuterol 2.5 mg Route: Inhalation; em 20:06 Drug: NS 0.9% 1000 ml Route: IV; Rate: 1000 ml; Site: right antecubital; jb4 22:00 Follow up: Response: No adverse reaction; IV Status: Completed infusion; IV Intake: jb4 1000ml 21:01 Drug: Lidoderm 5 % (700 mg/patch) 1 patches {Note: administered to lower back.} Route: jb4 Topical; Site: affected area; 21:30 Follow up: Response: No adverse reaction; Pain is decreased jb4 Disposition: 04/10 09:59 Co-signature as Attending Physician, Wilder Schmidt MD I agree with the assessment and fritz plan of care. Disposition: 04/09/19 22:33 Discharged to Home. Impression: Dehydration, Acute upper respiratory infection, unspecified. - Condition is Stable. - Discharge Instructions: Dehydration, Elderly, Sciatica, Upper Respiratory Infection, Adult, Rehydration, Elderly. - Prescriptions for Lidoderm 5 % Topical adhesive patch,medicated - apply 1 patch by TRANSDERMAL route once daily As needed; 30 Transdermal Patch. Guaifenesin AC 10- 100 mg/5 mL Oral Liquid - take 10 milliliter by ORAL route every 4 hours As needed; 240 milliliter. - Medication Reconciliation Form, Thank You Letter, Antibiotic Education, Prescription Opioid Use form. - Follow up: Emergency Department; When: As needed; Reason: Worsening of condition. Follow up: Private Physician; When: 2 - 3 days; Reason: Recheck today's complaints, Continuance of care, Re-evaluation by your physician. - Problem is new. - Symptoms have improved. Signatures: Dispatcher [employer] Wilder Yepez MD MD cha Munoz, Edgar, EDUCATIONAL TECHNOLOGY COORDINATOR EDUCATIONAL TECHNOLOGY COORDINATOR Lilly Person RN RN ss Jean Huang, MULTIMEDIA TEACHER MULTIMEDIA TEACHER pm1 Hugo Lynch RN RN jb4 Corrections: (The following items were deleted from the chart) 04/09 23:17 22:33 04/09/2019 22:33 Discharged to Home. Impression: Dehydration; Acute upper jb4 respiratory infection, unspecified. Condition is Stable. Forms are Medication Reconciliation Form, Thank You Letter, Antibiotic Education, Prescription Opioid Use. Follow up: Emergency Department; When: As needed; Reason: Worsening of condition. Follow up: Private Physician; When: 2 - 3 days; Reason: Recheck today's complaints, Continuance of care, Re-evaluation by your physician. Problem is new. Symptoms have improved. pm1
[2019-04-10 02:55] VITALS: TEMP 98.2
[2019-04-10 03:03] VITALS: BP 104/68; O2SAT 99
--- NOTE | 2019-04-10 06:54 | EKG ---
Test Date: 2019-04-09 Test Time: 18:56:12 Balloon Artist: DALE MEASUREMENT RESULTS: Intervals: Rate: 85 WY: 166 QRSD: 72 QT: 378 QTc: 449 [place]: P: 38 WY: 166 QRS: -24 T: 31 INTERPRETIVE STATEMENTS: Normal sinus rhythm Inferior infarct, age undetermined Abnormal ECG Compared to ECG 01/30/2019 15:12:09 Myocardial infarct finding now present Atrial premature complex(es) no longer present Left-axis deviation no longer present T-wave abnormality no longer present Electronically Signed On 04-10-19 06:53:41 ENERGY RISK MANAGEMENT ANALYST by Timo Mccray
== END 2019-04-09 23:17 | disposition home or self-care (01) ==
LOC: ER 17:34
DX: E86.0 Dehydration (principal); J06.9 Acute upper respiratory infection, unspecified; I10 Essential (primary) hypertension; Z98.82 Breast implant status; Z88.2 Allergy status to sulfonamides; Z88.8 Allergy status to other drugs, medicaments and biological substances
CPT/HCPCS: 96361; 93005; 87070; 85025; 80048; 36415; 83735; 85610; 80076; 87081; 84484; 83880; 87804 ×2; 71045; 96360; 99284; J7030

== ENCOUNTER 2019-08-01 17:10 | Inpatient (IN) | payer OTHER ==
[2019-08-01 17:41] LABS: Absolute Lymphocytes (CBC) 1.1 K/uL (0.7-4.9); Basophils % 1.1 % (0-1.3); Hematocrit 34.4 % (36.0-45.0); Lymphocytes % 12.2 % (15.3-44.8); MPV 9.4 fL (7.6-11.3); RBC Red Blood Cell Count 3.85 M/uL (3.86-4.86)
[2019-08-01] MEDS ORDERED: NA CHLORIDE 0.9% 3,000 ML ONE (17:57)
[2019-08-01] MEDS ORDERED: FAMOTIDINE 20 MG/2 ML VIAL IV ONE (17:57)
[2019-08-01 18:02] LABS: ALT/SGPT 23 U/L (12-78); AST/SGOT 26 U/L (15-37); Albumin 3.8 g/dL (3.4-5.0); Alkaline Phosphatase 52 U/L (45-117); Amylase Level 74 U/L (25-115); BUN Blood Urea Nitrogen 57 mg/dL (7-18); Bicarbonate 24 mmol/L (21-32); Bilirubin Direct < 0.1 mg/dL (0-0.2); Bilirubin Total 0.5 mg/dL (0.2-1.0); CKMB Creatine Kinase MB 2.2 ng/mL (0.3-3.6); Creatine Phosphokinase 101 U/L (26-192); Glucose Level 120 mg/dL (74-106); Lipase 163 U/L (73-393); Magnesium 1.9 mg/dL (1.8-2.4); NT PRO-BNP 272 pg/mL (<450); Potassium 4.6 mmol/L (3.5-5.1); Protein, Total 7.5 g/dL (6.4-8.2); Sodium Level 134 mmol/L (136-145); Troponin (Emerg Dept Use Only) < 0.02 ng/mL (0.0-0.045)
[2019-08-01 18:13] LABS: Urine Amorphous Sediment 2+ /HPF (NONE SEEN); Urine Bacteria <20 /HPF (<20); Urine Culture Reflex Order NOT NEEDED; Urine Mucus 2+ /HPF (NONE SEEN)
[2019-08-01 18:14] LABS: Urine Blood TRACE (NEG); Urine Glucose NEGATIVE (NEG); Urine Protein TRACE (NEG)
--- NOTE | 2019-08-01 18:59 | RAD REPORT ---
EXAM DESCRIPTION: RAD - Chest Single View - 08/01/2019 6:28 pm CLINICAL HISTORY: COUGH, weakness, shortness of breath COMPARISON: Portable March 2019 TECHNIQUE: AP portable chest image was obtained 08/01/2019 6:28 pm . FINDINGS: Lung volumes are low. This accentuates baseline interstitial pattern. A mild interstitial edema or infiltrate could be masked by the chronic pattern. No peripheral mass or consolidation. Moderate-sized hiatal hernia is present similar to comparison. Heart and vasculature are normal. No m easurable pleural effusion and no pneumothorax. No acute bony abnormality seen. No acute aortic findi ngs suspected. IMPRESSION: No acute cardiopulmonary process. Chronic interstitial pattern, accentuated by shallow inspiration, could mask early interstitial edema or infiltrate.
--- NOTE | 2019-08-01 19:12 | ER ---
Nurse's Notes [facility] Name: Milagro Canela Age: 79 yrs Sex: Female : 1940 Arrival Date: 08/01/2019 Time: 17:13 Bed 28 Private MD: Diagnosis: Volume depletion;Weakness;Acute kidney failure Presentation: 07/31 17:10 Chief complaint: EMS states: that pt states that she feels weak, decreased appetite, ah and sick x1 week. Vitals per EMS 120/82, 98.5, BG 156. Also per son, he thinks she has had increased confusion. Coronavirus screen: Surgical mask placed on patient. Patient moved to private room, placed in contact and droplet isolation with eye protection until further assessment. Patient reports a cough. Patient denies shortness of breath or difficulty breathing. Patient denies measured and/or subjective temperature greater than 100.4F prior to today's visit. Patient denies travel on a cruise ship or to a country the [facility] currently lists as an affected area. Infection Prevention Nurse has been notified of patient in isolation for probable COVID-19. Ebola Screen: No symptoms or risks identified at this time. 17:10 Method Of Arrival: EMS: [facility] 17:10 Initial Sepsis Screen: Does the patient meet any 2 criteria? No. Patient's initial sepsis screen is negative. Does the patient have a suspected source of infection? No. Patient's initial sepsis screen is negative. Risk Assessment: Do you want to hurt yourself or someone else? Patient reports no desire to harm self or others. Onset of symptoms. 17:10 Acuity: ADRIANNA 3 Historical: - Allergies: 18:13 Ranitidine HCl; sv 18:13 Sulfa (Sulfonamide Antibiotics) (rash); sv - Home Meds: 18:13 levothyroxine 88 mcg tab 1 tab once daily [Active]; sertraline 100 mg Oral tab 1.5 tabs sv once daily [Active]; gabapentin 100 mg Oral cap 2 times per day [Active]; flaxseed oil 1,000 mg Oral cap twice a day [Active]; multivitamin Oral [Active]; Co Q-10 100 mg Oral cap [Active]; Super B Complex-Vitamin C Oral tab [Active]; magnesium citrate Oral soln [Active]; Mirtazapine Oral [Active]; famotidine 40 mg Oral tab 1 tab once daily [Active]; - PMHx: 18:13 bladder tumors; Depression; Hypertension; Hypothyroidism; sv - PSHx: 18:13 Hysterectomy; Appendectomy; breast augmentation and liposuction; bladder tumor removed; sv - Immunization history:: Adult Immunizations up to date. - Family history:: not pertinent. Screenin:15 Abuse screen: Denies threats or abuse. Denies injuries from another. Nutritional sv screening: No deficits noted. Tuberculosis screening: No symptoms or risk factors identified. Fall Risk No fall in past 12 months (0 pts). No secondary diagnosis (0 pts). IV access (20 points). Ambulatory Aid- None/Bed Rest/Nurse Assist (0 pts). Gait- Normal/Bed Rest/Wheelchair (0 pts) Mental Status- Overestimates/Forgets Limitations (15 pts.). Total Tavares Fall Scale indicates Low Risk Score (25-44 pts). Fall prevention measures have been instituted. Side Rails Up X 2 Placed close to Nursing Station Frequent Obs/Assesments occuring As available Patient and Family Educated on Fall Prevention Program and strategies. Assessment: 18:20 General: Appears uncomfortable, unkempt, Behavior is cooperative. Pain: Denies pain. ah Neuro: Level of Consciousness is awake, alert, obeys commands, Oriented to person, place. Cardiovascular: Heart tones S1 S2 present Capillary refill < 3 seconds Patient's skin is warm and dry. Pulses are palpable in right radial artery and left radial artery Edema BLE Rhythm is irregular. Respiratory: Airway is patent Respiratory effort is even, unlabored, Respiratory pattern is regular, Breath sounds are clear Parent/caregiver reports the patient having cough that is more at night. GI: Abdomen is obese, Bowel sounds present X 4 quads. Abd is non tender Reports nausea, Patient currently denies vomiting. : Urine is cloudy, Reports burning with urination, a few days. EENT: No signs and/or symptoms were reported regarding the EENT system. Derm: No signs and/or symptoms reported regarding the dermatologic system. Skin is intact. Musculoskeletal: No signs and/or symptoms reported regarding the musculoskeletal system. Reports unable to ambulate at this time. 18:23 Reassessment: Called [facility] dept hotline to get pt tested for COVID, stated they sv would give us a call back. 19:15 General: Appears in no apparent distress. Behavior is calm, cooperative. Pain: Denies ea pain. Neuro: Level of Consciousness is awake, alert, obeys commands, Oriented to person, place. Cardiovascular: Patient's skin is warm and dry. Respiratory: Airway is patent Respiratory effort is even, unlabored, Respiratory pattern is regular, symmetrical. Derm: Skin is fragile, Skin temperature is warm. 20:48 Reassessment: Patient appears in no apparent distress at this time. pt updated, sg receiving nurse unavailable at this time for pt report, pt stated understanding for delay in admission, awaiting a call back from fourth floor at this time per Giovanna LOWE. 21:49 Reassessment: Patient and/or family updated on plan of care and expected duration. Pain ea level reassessed. Patient is alert, oriented x 3, equal unlabored respirations, skin warm/dry/pink. 22:25 Reassessment: Patient and/or family updated on plan of care and expected duration. Pain ea level reassessed. Patient is alert, oriented x 3, equal unlabored respirations, skin warm/dry/pink. Report given to Harika LOWE. 22:34 Reassessment: Patient and/or family updated on plan of care and expected duration. Pain ea level reassessed. Patient is alert, oriented x 3, equal unlabored respirations, skin warm/dry/pink. Pt admitted to second floor, left ED via stretcher per tech, pt tolerating well. 08/01 08:30 Reassessment: [id number]. Vital Signs: 07/31 17:10 BP 120 / 74; Pulse 106; Resp 15; Temp 98.2; Pulse Ox 100% ; Weight 68.04 kg; Height 4 ah ft. 10 in. (147.32 cm); Pain 0/10; 17:50 Weight 72 kg; sv 18:00 BP 109 / 78; Pulse 96; Resp 17; Pulse Ox 95% ; ah 19:17 BP 112 / 74; Pulse 87; Resp 18; Pulse Ox 96% ; ea 21:00 BP 122 / 86; Pulse 85; Resp 19; Pulse Ox 96% on R/A; ea 22:00 BP 113 / 65; Pulse 86; Resp 18; Pulse Ox 98% ; ea 17:10 Body Mass Index 31.35 (72.00 kg, 147.32 cm) ED Course: 17:10 Patient has correct armband on for positive identification. Placed in gown. Bed in low sv position. Call light in reach. Side rails up X2. quality assurance monitor chassis on. Pulse ox on. NIBP on. Door closed. Head of bed elevated. 17:13 Patient arrived in ED. fritz 17:13 Wilder Schmidt MD is Attending Physician. fritz 17:22 First set of blood cultures drawn by me. Flu and/or RSV swab sent to lab. Strep swab sv sent to lab. Inserted saline lock: 22 gauge in left forearm, using aseptic technique. ,using aseptic technique. diffusics Blood collected. Flushed left forearm with 5 ml normal saline. 17:30 Second set of blood cultures drawn by me. sv 17:40 Urine collected: Prieto catheter specimen, clear. Prieto cath inserted, using sterile sv technique, 16 Fr., by ED staff, balloon inflated, to gravity drainage, urine specimen collected. returned clear yellow urine. Patient tolerated well. 17:40 Arm band placed on. sv 18:10 Jennifer Mccray, RN is Primary Nurse. 18:18 Throat Culture Sent. sv 18:19 Triage completed. 18:30 XRAY Chest (1 view) In Process Unspecified. EDMS 19:10 Sesar Faria MD is Hospitalizing Provider. [facility] 21:22 No provider procedures requiring assistance completed. Patient admitted, IV remains in ea place. Administered Medications: 18:09 Drug: Cefepime 2 grams Route: IVPB; Rate: 200 ml/hr; Infused Over: 30 mins; Site: left sv forearm; 19:00 Follow up: Response: No adverse reaction; IV Status: Completed infusion ea 18:09 Drug: Pepcid 20 mg Route: IVP; Site: left forearm; sv 19:00 Follow up: Response: No adverse reaction ea 18:10 Drug: NS 0.9% (30 ml/kg) 30 ml/kg Route: IV; Rate: bolus; Site: left forearm; sv 22:38 Follow up: Response: No adverse reaction; IV Status: Completed infusion; IV Intake: ea 2000ml Intake: 22:38 IV: 2000ml; Total: 2000ml. ea Outcome: 19:11 Decision to Hospitalize by Provider. fritz 21:23 Instructed on the need for admit, Demonstrated understanding of instructions. ea 22:26 Admitted to Med/surg accompanied by tech, room 414, with chart, Report called to lizette Shabazz RN 22:26 Condition: stable 22:36 Patient left the ED. lizette Signatures: Dispatcher [employer] EDTina Mayo, RN Dimitri Robb RN RN Wilder Lockhart MD MD cha Williams, Irene, RN Nivia Russ RN Jennifer Arias ea RN CHRISSY
--- NOTE | 2019-08-01 19:13 | EDPHYS ---
Physician Documentation [facility] Name: Milagro Canela Age: 79 yrs Sex: Female : 1940 Arrival Date: 08/01/2019 Time: 17:13 Bed 28 Private MD: VIJAY Physician Wilder Schmidt HPI: 07/31 17:17 This 79 yrs old Female presents to ER via Unassigned with complaints of fritz weakness,anorexia and cough. 17:17 weak, anorexia. The patient or guardian reports cough, difficulty breathing. Onset: The fritz symptoms/episode began/occurred 4 day(s) ago. Severity of symptoms: At their worst the symptoms were mild, in the emergency department the symptoms are actually worse, mildly. Modifying factors: The symptoms are alleviated by nothing, the symptoms are aggravated by nothing. Associated signs and symptoms: Pertinent positives: rhinorrhea. Historical: - Allergies: 18:13 Ranitidine HCl; sv 18:13 Sulfa (Sulfonamide Antibiotics) (rash); sv - Home Meds: 18:13 levothyroxine 88 mcg tab 1 tab once daily [Active]; sertraline 100 mg Oral tab 1.5 tabs sv once daily [Active]; gabapentin 100 mg Oral cap 2 times per day [Active]; flaxseed oil 1,000 mg Oral cap twice a day [Active]; multivitamin Oral [Active]; Co Q-10 100 mg Oral cap [Active]; Super B Complex-Vitamin C Oral tab [Active]; magnesium citrate Oral soln [Active]; Mirtazapine Oral [Active]; famotidine 40 mg Oral tab 1 tab once daily [Active]; - PMHx: 18:13 bladder tumors; Depression; Hypertension; Hypothyroidism; sv - PSHx: 18:13 Hysterectomy; Appendectomy; breast augmentation and liposuction; bladder tumor removed; sv - Immunization history:: Adult Immunizations up to date. - Family history:: not pertinent. ROS: 17:17 Constitutional: Negative for fever, chills, and weight loss, Eyes: Negative for injury, fritz pain, redness, and discharge, ENT: Negative for injury, pain, and discharge, Neck: Negative for injury, pain, and swelling, Cardiovascular: Negative for chest pain, palpitations, and edema, Back: Negative for injury and pain, : Negative for injury, bleeding, discharge, and swelling, MS/Extremity: Negative for injury and deformity, Skin: Negative for injury, rash, and discoloration, Neuro: Negative for headache, weakness, numbness, tingling, and seizure, Psych: Negative for depression, anxiety, suicide ideation, homicidal ideation, and hallucinations, Allergy/Immunology: Negative for hives, rash, and allergies, Endocrine: Negative for neck swelling, polydipsia, polyuria, polyphagia, and marked weight changes, Hematologic/Lymphatic: Negative for swollen nodes, abnormal bleeding, and unusual bruising. 17:17 Respiratory: Positive for cough. 17:17 Abdomen/GI: Positive for anorexia. Exam: 17:17 Constitutional: This is a well developed, well nourished patient who is awake, alert, fritz and in no acute distress. Head/Face: Normocephalic, atraumatic. Eyes: Pupils equal round and reactive to light, extra-ocular motions intact. Lids and lashes normal. Conjunctiva and sclera are non-icteric and not injected. Cornea within normal limits. Periorbital areas with no swelling, redness, or edema. ENT: Nares patent. No nasal discharge, no septal abnormalities noted. Tympanic membranes are normal and external auditory canals are clear. Oropharynx with no redness, swelling, or masses, exudates, or evidence of obstruction, uvula midline. Mucous membranes moist. Neck: Trachea midline, no thyromegaly or masses palpated, and no cervical lymphadenopathy. Supple, full range of motion without nuchal rigidity, or vertebral point tenderness. No Meningismus. Chest/axilla: Normal chest wall appearance and motion. Nontender with no deformity. No lesions are appreciated. Cardiovascular: Regular rate and rhythm with a normal S1 and S2. No gallops, murmurs, or rubs. Normal PMI, no JVD. No pulse deficits. Respiratory: Lungs have equal breath sounds bilaterally, clear to auscultation and percussion. No rales, rhonchi or wheezes noted. No increased work of breathing, no retractions or nasal flaring. Abdomen/GI: Soft, non-tender, with normal bowel sounds. No distension or tympany. No guarding or rebound. No evidence of tenderness throughout. Back: No spinal tenderness. No costovertebral tenderness. Full range of motion. Skin: Warm, dry with normal turgor. Normal color with no rashes, no lesions, and no evidence of cellulitis. MS/ Extremity: Pulses equal, no cyanosis. Neurovascular intact. Full, normal range of motion. Neuro: Awake and alert, GCS 15, oriented to person, place, time, and situation. Cranial nerves II-XII grossly intact. Motor strength 5/5 in all extremities. Sensory grossly intact. Cerebellar exam normal. Normal gait. Psych: Awake, alert, with orientation to person, place and time. Behavior, mood, and affect are within normal limits. 17:20 Musculoskeletal/extremity: DVT Exam: No signs of deep vein thrombosis. no pain, no fritz swelling, no tenderness, negative Homans' sign noted on exam, no appreciated bluish discoloration, no erythema, no increased warmth. Vital Signs: 17:10 BP 120 / 74; Pulse 106; Resp 15; Temp 98.2; Pulse Ox 100% ; Weight 68.04 kg; Height 4 ah ft. 10 in. (147.32 cm); Pain 0/10; 17:50 Weight 72 kg; sv 18:00 BP 109 / 78; Pulse 96; Resp 17; Pulse Ox 95% ; ah 19:17 BP 112 / 74; Pulse 87; Resp 18; Pulse Ox 96% ; ea 21:00 BP 122 / 86; Pulse 85; Resp 19; Pulse Ox 96% on R/A; ea 22:00 BP 113 / 65; Pulse 86; Resp 18; Pulse Ox 98% ; ea 17:10 Body Mass Index 31.35 (72.00 kg, 147.32 cm) MDM: 17:13 Patient medically screened. [facility] 17:20 Data reviewed: vital signs, nurses notes, lab test result(s), EKG, radiologic studies, [facility] plain films. 07/31 17:15 Order name: Basic Metabolic Panel; Complete Time: 18: [facility] 07/31 17:15 Order name: CBC with Diff; Complete Time: 18: [facility] 07/31 17:15 Order name: LFT's; Complete Time: 18:08 [facility] 07/31 17:16 Order name: Magnesium; Complete Time: 18: [facility] 07/31 17:16 Order name: NT PRO-BNP; Complete Time: 18:08 [facility] 07/31 17:16 Order name: PT-INR; Complete Time: 18: [facility] 07/31 17:16 Order name: Troponin (emerg Dept Use Only); Complete Time: 18:08 fritz 07/31 17:16 Order name: Amylase, Serum; Complete Time: 18:08 fritz 07/31 17:16 Order name: Blood Culture Adult (2) fritz 07/31 17:16 Order name: Ckmb; Complete Time: 18:08 fritz 07/31 17:16 Order name: CPK; Complete Time: 18:08 fritz 07/31 17:16 Order name: Lactate; Complete Time: 20:02 fritz 07/31 17:16 Order name: Lipase; Complete Time: 18:08 fritz 07/31 17:16 Order name: Procalcitonin; Complete Time: 19:08 fritz 07/31 17:16 Order name: XRAY Chest (1 view); Complete Time: 19:08 fritz 07/31 17:16 Order name: Ptt, Activated; Complete Time: 18:08 fritz 07/31 17:16 Order name: Urine Microscopic Only; Complete Time: 19:08 fritz 07/31 17:16 Order name: Influenza Screen (a \T\ B); Complete Time: 19:08 fritz 07/31 17:16 Order name: COVID-19 [facility] 07/31 17:16 Order name: Strep; Complete Time: 19:08 fritz 07/31 18:01 Order name: Urine Dipstick--Ancillary (enter results); Complete Time: 19:08 07/31 18:11 Order name: Throat Culture EDCT 07/31 19:30 Order name: Basic Metabolic Panel EDCT 07/31 19:31 Order name: Basic Metabolic Panel EDCT 07/31 19:31 Order name: CBC with Automated Diff EDMS 07/31 19:31 Order name: CBC with Automated Diff EDMS 07/31 19:31 Order name: Troponin I EDCT 07/31 19:31 Order name: Troponin I EDMS 07/31 19:31 Order name: Troponin I EDCT 07/31 22:07 Order name: Lactate Sepsis 2 HR Follow-up EDCT 07/31 17:16 Order name: EKG; Complete Time: 17:17 fritz 07/31 17:16 Order name: Cardiac monitoring; Complete Time: 18:12 fritz 07/31 17:16 Order name: EKG - Nurse/Tech; Complete Time: 18:11 fritz 07/31 17:16 Order name: IV Saline Lock; Complete Time: 18:11 [facility] 07/31 17:16 Order name: Labs collected and sent; Complete Time: 18:11 [facility] 07/31 17:16 Order name: O2 Per Protocol; Complete Time: 18:11 [facility] 07/31 17:16 Order name: O2 Sat Monitoring; Complete Time: 18:11 [facility] 07/31 17:16 Order name: IV Saline Lock - Large Bore; Complete Time: 18:43 [facility] 07/31 17:16 Order name: Urine Dipstick-Ancillary (obtain specimen); Complete Time: 19:14 [facility] 07/31 18:18 Order name: Notify Health Dept [phone]/ ; Complete Time: 18:19 07/31 19:30 Order name: Regular EDMS 07/31 19:30 Order name: EKG Electrocardiogram EDMS 07/31 19:30 Order name: EKG Electrocardiogram EDMS 07/31 19:30 Order name: EKG Electrocardiogram EDMS 07/31 19:30 Order name: EKG Electrocardiogram EDMS 07/31 19:31 Order name: Chest Single View EDMS 07/31 19:31 Order name: Chest Single View EDMS Administered Medications: 18:09 Drug: Cefepime 2 grams Route: IVPB; Rate: 200 ml/hr; Infused Over: 30 mins; Site: left sv forearm; 19:00 Follow up: Response: No adverse reaction; IV Status: Completed infusion ea 18:09 Drug: Pepcid 20 mg Route: IVP; Site: left forearm; sv 19:00 Follow up: Response: No adverse reaction ea 18:10 Drug: NS 0.9% (30 ml/kg) 30 ml/kg Route: IV; Rate: bolus; Site: left forearm; sv 22:38 Follow up: Response: No adverse reaction; IV Status: Completed infusion; IV Intake: ea 2000ml Disposition: 08/01/19 19:11 Hospitalization ordered by Sesar Faria for Inpatient Admission. Preliminary diagnosis are Volume depletion, Weakness, Acute kidney failure. - Bed requested for Telemetry/MedSurg (Inpatient). - Status is Inpatient Admission. ea - Condition is Fair. - Problem is new. - Symptoms have improved. Signatures: Dispatcher [facility] HealthcareTina Mayo RN RN sv Anderson, Corey, MD MD cha Lasagna, Grace, RN RN tl1 Nivia Patel RN RN ea Harris, Amy RN CHRISSY Corrections: (The following items were deleted from the chart) 20:39 19:11 Hospitalization Ordered by A Bienvenido OCAMPO for Inpatient Admission. Preliminary tl1 diagnosis is Volume depletion; Weakness; Acute kidney failure. Bed requested for Telemetry/MedSurg (Inpatient). Status is Inpatient Admission. Condition is Fair. Problem is new. Symptoms have improved. [facility] 22:36 20:39 08/01/2019 19:11 Hospitalization Ordered by A Bienvenido OCAMPO for Inpatient Admission. lizette Preliminary diagnosis is Volume depletion; Weakness; Acute kidney failure. Bed requested for Telemetry/MedSurg (Inpatient). Status is Inpatient Admission. Condition is Fair. Problem is new. Symptoms have improved. tl1
[2019-08-01] MEDS ORDERED: ONDANSETRON 4 MG/2 ML VIAL IV PRN (19:14)
[2019-08-01] MEDS ORDERED: ACETAMINOPHEN 325 MG TABLET PO PRN (19:38)
[2019-08-01] MEDS ORDERED: CEFEPIME 1 GM/VIAL IV SCH (21:00)
[2019-08-01] MEDS ORDERED: HEPARIN 5000 UNIT/ML 1 ML VIAL SQ ONE (22:22)
[2019-08-01] MEDS ORDERED: FAMOTIDINE 20 MG/2 ML VIAL IV SCH (23:05)
[2019-08-01] MEDS: NA CHLORIDE 0.9% 1,000 ML IV SCH (23:20)
--- NOTE | 2019-08-02 00:03 | HP ---
Date of Admission: 08/01/2019 Chief Complaint: Cough, feeling weak, and confusion. History Of Present Illness: This is an 79-year-old female patient who lives at home by herself, was evaluated today. We had Telehealth and her son was with her when I was evaluating her through video conferencing. Patient reported that she is not feeling good lately. Reports having dry cough, mostly at nighttime. She does not have good appetite and she feels very weak and tired. Her son has noted some intermittent confusion lately. Denies any fever. Her temperature today at home was 97.2 degrees Fahrenheit. Patient reported to her son today that she did not eat anything for last 3 days and not drinking much water either. No fall or injury. She has some diarrhea for last few days and describes having about 2 soft to loose bowel movements a day. She has been spending a lot of time in the bed in last few days. After I evaluated her, she appeared extremely weak and it was recommended for patient to come to emergency room and she was brought to the ER via ambulance. After she was evaluated in the ER, she was admitted to the hospital and I saw her in emergency room. Allergies: TO SULFA. Medications: Caltrate plus D 1 tablet 2 times a day, famotidine 40 mg p.o. daily at bedtime, Ferrocite 1 tablet by mouth daily; gabapentin 100 mg, takes 2 capsules by mouth 2 times a day; levothyroxine 112 mcg p.o. daily, magnesium oxide 250 mg p.o. daily, mirtazapine 30 mg p.o. at bedtime, sertraline 100 mg p.o. daily. Review of Systems: Constitutional: As mentioned above. GI: As mentioned above. Respiratory: As mentioned above. CLERICAL SPECIALIST: As mentioned above. All other systems reviewed and negative. Past Medical History: Significant for peripheral neuropathy likely due to alcohol use in the past, hypothyroidism, impaired fasting glucose, hypertension, hyperlipidemia, gastroesophageal reflux disease, diverticulosis, chronic kidney disease stage III, anemia, osteoarthritis at multiple sites, overactive bladder, depressed. Past Surgical History: Appendectomy, hysterectomy, knee surgery, liposuction, breast reduction. Family History: Father , had stroke, congestive heart failure, coronary artery disease. Mother , had diabetes, hyperlipidemia, stroke, coronary artery disease, and congestive heart failure. Brother with history of colon cancer and hyperlipidemia. Social History: Negative for smoking. Use of alcohol, negative at present time, heavy use of alcohol in the past. Patient has not had alcohol in a long time. Physical Examination: Vital Signs: Height 4 feet 10 inches; weight 166 pounds, temperature 98.2, respiratory rate 15, blood pressure 120/74. General: Patient appears extremely weaker than normal. Not in any distress. HEENT: Head atraumatic, normocephalic. Conjunctivae nonerythematous. Sclerae white. Mouth examination shows dry oral mucosa. Ears/Nose, no mass, lesion, discharge noted. Neck: Supple. No JVD, lymph nodes, bruit, thyromegaly noted. Lungs: Bilateral good equal air entry. Clear to auscultation. No rhonchi. No rales. Heart: Normal heart sounds, no murmur or gallop. Abdomen: Soft, bowel sounds normal. No guarding, rigidity, tenderness, mass, hepatosplenomegaly, distention, or bruit noted. Extremities: No leg edema. No calf tenderness. Skin: No rash, ulcer, cellulitis. Lymphatics: No lymph node enlargement in neck, supraclavicular, infraclavicular region. Neuro: No focal neurological deficit. Chest: Unremarkable. External Genitalia: Deferred. Rectal: Deferred. Laboratory Data: White count 9.3, hemoglobin 11.4, platelets 201. Sodium 134, potassium 4.6, chloride 102, bicarb 24, BUN 57, creatinine 2.04, glucose 120, magnesium 1.9. Liver function tests unremarkable. Troponin less than 0.02. Procalcitonin 0.1. Urinalysis, bacteria less than 20, 5-10 rbc's, negative for nitrite and esterase, wbc's less than 5. Impression: 1. Acute renal failure. 2. Anemia, chronic. 3. Cough. 4. Confusion. 5. Rule out COVID-19. 6. Hypertension. 7. Peripheral neuropathy. 8. Impaired fasting glucose. 9. Hyperlipidemia. 10. Diverticulosis. 11. Gastroesophageal reflux disease. 12. Osteoarthritis, multiple sites. 13. Depression. Plan: 1. Admit patient to hospital for further evaluation and management of this problem. Patient is appropriate for inpatient and is expected to spend 2 midnights. 2. We will go ahead and continue home medications per order. 3. DVT prophylaxis will be given per order. 4. COVID-19 test was done in the emergency room. We will follow up on results. 5. IV fluid will be given. We will monitor electrolytes, renal function, and I will see her tomorrow for followup. I did talk to her through Telehealth prior to her admission in presence of her son. 6. About her advance directive, she informed me in the event of cardiopulmonary arrest, she does not want any CPR, defibrillation, or ventilator support and the patient's son did confirm that decision, so we will write DNR order in the chart. KETAN/EDDY Voice ID: [id number] DANIELLE
[2019-08-02 02:47] LABS: Absolute Lymphocytes (CBC) 1.4 K/uL (0.7-4.9); Basophils % 0.8 % (0-1.3); Hematocrit 24.7 % (36.0-45.0); Lymphocytes % 24.4 % (15.3-44.8); MPV 9.2 fL (7.6-11.3); RBC Red Blood Cell Count 2.77 M/uL (3.86-4.86)
[2019-08-02 02:55] LABS: Potassium 4.1 mmol/L (3.5-5.1)
[2019-08-02 03:22] VITALS: BMI 34.7
[2019-08-02] MEDS: NA CHLORIDE 0.9% 1,000 ML IV SCH ×3 (06:00→10:28)
--- NOTE | 2019-08-02 07:57 | RAD REPORT ---
EXAM DESCRIPTION: [place] Single View08/02/2019 7:10 am CLINICAL HISTORY: Chest pain COMPARISON: July 31 FINDINGS: The lungs appear clear of acute infiltrate. The heart is normal size IMPRESSION: No acute abnormalities displayed
[2019-08-02] MEDS: LEVOTHYROXINE SOD 0.088 MG TAB PO SCH (09:07)
[2019-08-02] MEDS: MULTIVITAMIN TAB PO SCH ×2 (09:07→16:50)
[2019-08-02] MEDS: ASPIRIN EC 81 MG TAB PO SCH (09:07)
[2019-08-02] MEDS: SERTRALINE HCL 100 MG TAB PO SCH (09:07)
[2019-08-02] MEDS: FAMOTIDINE 20 MG TAB PO SCH (09:08)
[2019-08-02] MEDS: HEPARIN 5000 UNIT/ML 1 ML VIAL SQ SCH ×2 (09:08→20:05)
[2019-08-02] MEDS: GABAPENTIN 100 MG CAP PO SCH ×2 (09:08→20:05)
[2019-08-02] MEDS: CEFEPIME/SWI 1gm 10 ML IV SCH ×2 (09:08→20:06)
[2019-08-02] MEDS: MIRTAZAPINE 15 MG TAB PO SCH (20:05)
--- NOTE | 2019-08-02 21:26 | PN ---
Date of Progress Note: 08/02/2019 Subjective: The patient was seen this morning for followup. No new complaints, problems reported by her. Objective: Vital Signs: Reviewed. HEENT: Unremarkable. Lungs: Clear to auscultation. Cardiac: Heart sounds normal. Abdomen: Soft. Bowel sounds normal. No guarding, rigidity, tenderness, distention. Extremities: No leg edema. Laboratory Data: White count 5.8, hemoglobin 8.2, platelets 144. Sodium 139, potassium 4.1, chlorid e 108, bicarb 24, BUN 48, creatinine 1.38, glucose 96. Impression: 1.Acute kidney injury. 2.Volume depletion. 3.Anemia. 4.Osteoarthritis, multiple sites. Plan: We will go ahead and continue IV fluid. Patient remains in isolation to rule out COVID-19. H opefully, we will get the results back by tomorrow and once the result comes back negative we probabl y can discontinue isolation. I did call and talk to patient's son this evening, explained all the de tails and our plan is to continue IV fluid. Repeat blood work tomorrow, discharge her to go home onc e we get negative results on COVID-19. Upon discharge, the patient to get some assistance with home health, home physical therapy and she had requested her caregiver not to come to her house anymore, b ut I have asked the patient's son to make sure that she does get help from the caregiver who was helping her pr ior to this hospital admission. KETAN/MODL Voice ID: [id number] Report ID: [id number]
[2019-08-03] MEDS: LEVOTHYROXINE SOD 0.088 MG TAB PO SCH (05:37)
[2019-08-03 06:14] LABS: Hematocrit 28.1 % (36.0-45.0); Lymphocytes % 24.2 % (15.3-44.8); MPV 8.6 fL (7.6-11.3); RBC Red Blood Cell Count 3.09 M/uL (3.86-4.86)
[2019-08-03 06:49] LABS: Potassium 4.1 mmol/L (3.5-5.1)
--- NOTE | 2019-08-03 07:38 | EKG ---
Test Date: 2019-08-02 Test Time: 08:24:31 Qm Consultant: EVAN MEASUREMENT RESULTS: Intervals: Rate: 76 DC: 176 QRSD: 74 QT: 400 QTc: 450 [place] Cbc Base: P: 35 DC: 176 QRS: -15 T: 7 INTERPRETIVE STATEMENTS: Normal sinus rhythm Inferior infarct, age undetermined T wave abnormality, consider anterior ischemia Abnormal ECG Compared to ECG 08/01/2019 17:40:47 T-wave abnormality now present Possible ischemia now present Myocardial infarct finding still present Electronically Signed On 08-03-19 07:34:58 CDT by Ryan Hui
[2019-08-03] MEDS: HEPARIN 5000 UNIT/ML 1 ML VIAL SQ SCH ×2 (08:47→21:01)
[2019-08-03] MEDS: SERTRALINE HCL 100 MG TAB PO SCH (08:47)
[2019-08-03] MEDS: ASPIRIN EC 81 MG TAB PO SCH (08:47)
[2019-08-03] MEDS: GABAPENTIN 100 MG CAP PO SCH ×2 (08:47→21:01)
[2019-08-03] MEDS: MULTIVITAMIN TAB PO SCH ×2 (08:47→16:35)
[2019-08-03] MEDS: CEFEPIME/SWI 1gm 10 ML IV SCH ×2 (08:47→21:01)
[2019-08-03] MEDS: FAMOTIDINE 20 MG TAB PO SCH (08:47)
--- NOTE | 2019-08-03 11:18 | PN ---
Date of Progress Note: 08/03/2019 Subjective: Patient was seen this morning for followup. No new complaints or problems reported by her. Lying in bed, not in distress. Objective: Vital Signs: Reviewed. HEENT: Unremarkable. Lungs: Clear to auscultation. Heart: Sounds normal. Abdomen: Soft. Bowel sounds normal. No guarding, rigidity, tenderness, or distention. EXTREMITIES: No leg edema. Laboratory Data: White count 3.9, hemoglobin 9.3, platelets 135. Sodium 144, potassium 4.1, chloride 112, bicarb 25, BUN 23, creatinine 0.95, glucose 93 Impression: 1. Volume depletion. 2. Anemia. 3. Hypertension. Plan: We will go ahead and continue current medications, IV fluid. Remove Prieto catheter. COVID-19 test is pending. Possible discharge to go home either today or tomorrow once we get the results back, depending on that and depending on patient's condition. I did talk to patient's son last night and upon discharge, patient to have home health services, home physical therapy, and nurse was advised to consult Social Service to make arrangements for home health and home physical therapy upon discharge. KETAN/MODL Voice ID: [id number] Report ID: [id number] DANIELLE
[2019-08-03] MEDS: NA CHLORIDE 0.9% 1,000 ML IV SCH (13:56)
--- NOTE | 2019-08-03 14:34 | EKG ---
Test Date: 2019-08-01 Test Time: 17:40:47 Junior Network Engineer: Timo Mccray MEASUREMENT RESULTS: Intervals: Rate: 95 [place]: 160 QRSD: 64 QT: 346 QTc: 434 [place]: P: 42 [place]: 160 QRS: -23 T: 31 INTERPRETIVE STATEMENTS: Normal sinus rhythm Possible Inferior infarct, age undetermined Abnormal ECG Compared to ECG 04/09/2019 18:56:12 No significant changes Electronically Signed On 08-03-19 14:33:02 CDT by Ryan Hui
[2019-08-03] MEDS: MIRTAZAPINE 15 MG TAB PO SCH (21:01)
[2019-08-04] MEDS: LEVOTHYROXINE SOD 0.088 MG TAB PO SCH (04:33)
[2019-08-04] MEDS: NA CHLORIDE 0.9% 1,000 ML IV SCH ×2 (04:33→16:05)
[2019-08-04] MEDS: FAMOTIDINE 20 MG TAB PO SCH (07:54)
[2019-08-04] MEDS: ASPIRIN EC 81 MG TAB PO SCH (07:54)
[2019-08-04] MEDS: MULTIVITAMIN TAB PO SCH ×2 (07:54→16:04)
[2019-08-04] MEDS: SERTRALINE HCL 100 MG TAB PO SCH (07:54)
[2019-08-04] MEDS: GABAPENTIN 100 MG CAP PO SCH ×2 (07:55→21:12)
[2019-08-04] MEDS: HEPARIN 5000 UNIT/ML 1 ML VIAL SQ SCH ×2 (08:00→21:13)
[2019-08-04] MEDS: CEFEPIME/SWI 1gm 10 ML IV SCH ×2 (08:01→21:12)
--- NOTE | 2019-08-04 11:08 | RAD REPORT ---
EXAM DESCRIPTION: RAD - Chest Single View - 08/04/2019 10:41 am CLINICAL HISTORY: cough COMPARISON: Portable chest August 01 TECHNIQUE: AP portable chest image was obtained 08/04/2019 10:41 am . FINDINGS: Lung volumes are low accentuating lung markings. No focal consolidation identifiable. No n ew lung parenchymal process. Moderately large hiatal hernia present. Heart and vasculature are normal . No measurable pleural effusion and no pneumothorax. No acute bony abnormality seen. No acute aortic findings suspected. IMPRESSION: Limited shallow inspiration exam with no focal or acute lung parenchymal process seen. No clear change from prior imaging.
--- NOTE | 2019-08-04 20:15 | PN ---
Date of Progress Note: 08/04/2019 Subjective: Patient was seen this morning for followup. No new complaints, problems reported by her except dry cough. Objective: Vital Signs: Reviewed. HEENT: Unremarkable. Lungs: Clear to auscultation. Cardiac: Heart sounds normal. Abdomen: Soft, bowel sounds normal. No guarding, rigidity, tenderness, or distention. Extremities: No leg edema. Laboratory Data: Repeat chest x-ray done today, no acute cardiopulmonary changes. The patient's oxy gen saturation is 98% on room air. Impression: 1.Volume depletion, improved. 2.Anemia. 3.Cough. 4.Hypertension. Plan: We will go ahead and continue current medications. Patient continues to remain in isolation. Her COVID-19 test result is pending. Once that comes back negative, then we will be able to dischar ge her to go home. KETAN/MODL Voice ID: [id number] Report ID: [id number]
[2019-08-04] MEDS: MIRTAZAPINE 15 MG TAB PO SCH (21:12)
[2019-08-05] MEDS: NA CHLORIDE 0.9% 1,000 ML IV SCH (06:00)
[2019-08-05] MEDS: LEVOTHYROXINE SOD 0.088 MG TAB PO SCH (06:00)
[2019-08-05] MEDS: FAMOTIDINE 20 MG TAB PO SCH (07:53)
[2019-08-05] MEDS: MULTIVITAMIN TAB PO SCH ×2 (07:54→16:16)
[2019-08-05] MEDS: CEFEPIME/SWI 1gm 10 ML IV SCH ×2 (07:54→20:02)
[2019-08-05] MEDS: HEPARIN 5000 UNIT/ML 1 ML VIAL SQ SCH ×2 (07:54→20:03)
[2019-08-05] MEDS: GABAPENTIN 100 MG CAP PO SCH ×2 (07:54→20:03)
[2019-08-05] MEDS: ASPIRIN EC 81 MG TAB PO SCH (07:54)
[2019-08-05] MEDS: SERTRALINE HCL 100 MG TAB PO SCH (07:54)
--- NOTE | 2019-08-05 12:16 | PN ---
Date of Progress Note: 08/05/2019 Subjective: The patient was seen this morning for followup. No new complaints or problems reported by her. Vital signs reviewed. No shortness of breath. Has some dry cough. No expectoration. No a bdominal pain, nausea, or vomiting. Objective: Vital Signs: Reviewed. HEENT: Unremarkable. Lungs: Clear to auscultation. Heart: Sounds normal. Abdomen: Soft. Bowel sounds normal. No guarding, rigidity, tenderness, or distention. Extremities: No leg edema. Laboratory Data: There are no new labs from this morning and COVID-19 test is pending. Impression: 1.Acute kidney injury. 2.Volume depletion. 3.Cough. 4.Rule out coronavirus disease 2019. Plan: The patient's volume depletion problem has resolved, so if her renal function resolves or almo st back to normal, we will discontinue IV fluid now. I have asked nursing staff to contact [facility] to see if we can get any results back on COVID-19. The patient lives at home by herself and she is going to have a caregiver coming to her house, her sister. She will need assistance at home and will not be able to manage on her own, so I would really prefer to discharge her after getting negative results o n COVID-19 test, which is pending. KETAN/MODL Voice ID: [id number] Report ID: [id number]
[2019-08-05] MEDS: MIRTAZAPINE 15 MG TAB PO SCH (20:03)
[2019-08-06] MEDS: LEVOTHYROXINE SOD 0.088 MG TAB PO SCH (06:18)
[2019-08-06] MEDS: FAMOTIDINE 20 MG TAB PO SCH (08:03)
[2019-08-06] MEDS: GABAPENTIN 100 MG CAP PO SCH (08:03)
[2019-08-06] MEDS: CEFEPIME/SWI 1gm 10 ML IV SCH (08:03)
[2019-08-06] MEDS: SERTRALINE HCL 100 MG TAB PO SCH (08:04)
[2019-08-06] MEDS: ASPIRIN EC 81 MG TAB PO SCH (08:04)
[2019-08-06] MEDS: MULTIVITAMIN TAB PO SCH (08:04)
[2019-08-06] MEDS: HEPARIN 5000 UNIT/ML 1 ML VIAL SQ SCH (08:04)
[2019-08-06 12:09] VITALS: O2SAT 96
[2019-08-06 12:33] VITALS: BP 128/72; TEMP 99.1
--- NOTE | 2019-08-08 21:43 | DS ---
Date of Discharge: 08/06/2019 Physical Examination: HEENT: Unremarkable. Lungs: Clear to auscultation. Cardiac: Heart sounds normal. Abdomen: Soft, bowel sounds normal. No guarding, rigidity, tenderness, distention. Extremities: No leg edema. Laboratory Data: Upon admission, white count 9.3, hemoglobin 11.4, platelets 208, which was on 07/31. On 08/03/2019, white count 3.9, hemoglobin 9.3, platelets 135. Procalcitonin upon admission was 0.14. Last chemistry on 08/03/2019, sodium 144, potassium 4.1, chloride 112, bicarb 25, BUN 23, creatinine 0.95, glucose 93, magnesium 2. On admission on 08/01/2019, BUN was 57, creatinine 2.04. Liver function tests unremarkable. Troponin less than 0.02. Hospital Course: 79-year-old female patient living at home, was brought to emergency room with compl aints of cough, feeling weak and confusion. Please see dictated H and P for more information. After patient was evaluated in the ER, she was admitted to the hospital with acute kidney injury, volume d epletion. She was kept in isolation and COVID-19 test was done. It took few days before the test re sults came back and today on the day of discharge, once the result came back, we were able to dischar ge her to go back home. She lives by herself at home, had a caregiver services which she released he r caregiver services recently, but I have advised her to bring her caregiver services back and her so n already has arranged for that. We will also make arrangements for home health care services and ho me physical therapy for her. Besides dry cough during this hospitalization, she did not have any oth er complaints. Repeat chest x-ray was negative for pneumonia as well. Her oxygen saturation remaine d normal on room air throughout this hospitalization and she remained afebrile. Her renal failure an d volume depletion problem got corrected with IV fluid. She has very poor appetite and I have encour aged her to eat all her 3 meals regularly as well as to drink adequate amount of liquids on a day-to- day basis. Patient was discharged to go home in stable condition with instruction to continue all pr ior home medications and follow up at my office next week. Final Diagnoses: 1.Acute renal failure. 2.Volume depletion. 3.Anemia, chronic. 4.Thrombocytopenia. 5.Cough. 6.Confusion. 7.Hypertension. 8.Peripheral neuropathy. 9.Impaired fasting glucose. 10.Hyperlipidemia. 11.Diverticulosis. 12.Gastroesophageal reflux disease. 13.Osteoarthritis, multiple sites. 14.Depression. KETAN/MODL Voice ID: [id number] Report ID: [id number]
== END 2019-08-06 12:25 | disposition home health service (06) | DRG 684 ==
LOC: ER 17:10 → ERHOLD 20:19 → 4TH 22:27
PROVIDERS: ADMIT Internal Medicine; ATTEND Internal Medicine
PROC: 8E0ZXY6 Isolation (ICD-10-PCS; principal; 2019-08-01)
DX: N17.9 Acute kidney failure, unspecified (principal); D69.6 Thrombocytopenia, unspecified; E86.9 Volume depletion, unspecified; K21.9 Gastro-esophageal reflux disease without esophagitis; F32.9 Major depressive disorder, single episode, unspecified; E78.5 Hyperlipidemia, unspecified; G62.9 Polyneuropathy, unspecified; R73.01 Impaired fasting glucose; K57.90 Diverticulosis of intestine, part unspecified, without perforation or abscess without bleeding; D64.9 Anemia, unspecified; M19.90 Unspecified osteoarthritis, unspecified site; Z88.1 Allergy status to other antibiotic agents; N18.3 Chronic kidney disease, stage 3 (moderate); I12.9 Hypertensive chronic kidney disease with stage 1 through stage 4 chronic kidney disease, or unspecified chronic kidney disease; Z90.49 Acquired absence of other specified parts of digestive tract; Z90.710 Acquired absence of both cervix and uterus; Z79.890 Hormone replacement therapy; Z79.899 Other long term (current) drug therapy; R41.0 Disorientation, unspecified; Z20.828 Contact with and (suspected) exposure to other viral communicable diseases; R05 Cough; E03.9 Hypothyroidism, unspecified; Z60.2 Problems related to living alone; Z88.8 Allergy status to other drugs, medicaments and biological substances
CPT/HCPCS: 36415; 51702; 71045; 80048; 80076; 81003; 81015; 82150; 82550; 82553; 83605; 83690; 83735; 83880; 84145; 84484; 85025; 85610; 85730; 87040; 87070; 87081; 87804; 93005; 96365; 96366; 96375; 99285; J0692; J1644; J7030; U0001

== ENCOUNTER 2019-08-28 13:50 | Inpatient (IN) | payer OTHER ==
[2019-08-28 15:22] LABS: Absolute Lymphocytes (CBC) 1.2 K/uL (0.7-4.9); Basophils % 0.6 % (0-1.3); Hematocrit 27.3 % (36.0-45.0); Lymphocytes % 22.2 % (15.3-44.8); MPV 8.6 fL (7.6-11.3); RBC Red Blood Cell Count 3.05 M/uL (3.86-4.86)
--- NOTE | 2019-08-28 15:25 | RAD REPORT ---
EXAM DESCRIPTION: CT - Head Brain Wo Cont - 08/28/2019 3:12 pm CLINICAL HISTORY: APHASIA. COMPARISON: None TECHNIQUE: Computed axial tomography of the head was obtained. IV contrast was not requested. All CT scans are performed using dose optimization technique as appropriate and may include automated exposure control or mA/KV adjustment according to patient size. FINDINGS: An intracranial bleed is not seen . The ventricles are normal in caliber. Mild cerebral atrophy No extra-axial fluid collection is noted. Coarse vascular calcifications Mild low-density areas within periventricular, deep and subcortical white matter likely represent is chemic changes secondary to small vessel disease. Fluid within the sinuses/ mastoids is not seen. IMPRESSION: No acute intracranial abnormality is seen. If patient's symptoms persist MRI of the bra in would be recommended.
[2019-08-28 15:35] LABS: ALT/SGPT 18 U/L (12-78); AST/SGOT 16 U/L (15-37); Albumin 3.4 g/dL (3.4-5.0); Alkaline Phosphatase 55 U/L (45-117); BUN Blood Urea Nitrogen 28 mg/dL (7-18); Bicarbonate 31 mmol/L (21-32); Bilirubin Direct < 0.1 mg/dL (0-0.2); Bilirubin Total 0.2 mg/dL (0.2-1.0); Glucose Level 99 mg/dL (74-106); Magnesium 2.2 mg/dL (1.8-2.4); NT PRO-BNP 427 pg/mL (<450); Potassium 4.2 mmol/L (3.5-5.1); Protein, Total 6.8 g/dL (6.4-8.2); Sodium Level 138 mmol/L (136-145); Troponin (Emerg Dept Use Only) < 0.02 ng/mL (0.0-0.045)
--- NOTE | 2019-08-28 16:18 | ER ---
Nurse's Notes [facility] Name: Milagro Canela Age: 79 yrs Sex: Female : 1940 Arrival Date: 08/28/2019 Time: 13:58 Bed 7 Private MD: Diagnosis: Weakness;Dysphasia Presentation: 08/27 14:04 Chief complaint: EMS states: Toned out by Home Health Nurse reporting she has had jl7 increased weakness since Tuesday, mild aphasia, decreased appetite and fluid intake. Coronavirus screen: Proceed with normal triage. Patient denies a cough. Patient denies shortness of breath or difficulty breathing. Patient denies measured and/or subjective temperature greater than 100.4F prior to today's visit. Patient denies travel on a cruise ship or to a country the [facility] currently lists as an affected area. Patient denies contact with known and/or suspected case of COVID-19. Ebola Screen: No symptoms or risks identified at this time. Initial Sepsis Screen: Does the patient meet any 2 criteria? No. Patient's initial sepsis screen is negative. Does the patient have a suspected source of infection? No. Patient's initial sepsis screen is negative. Risk Assessment: Do you want to hurt yourself or someone else? Patient reports no desire to harm self or others. Onset of symptoms was August 26, 2019. Care prior to arrival: Medication(s) given: Normal saline infusion, 250 mL IV initiated. 20 GA, in the right forearm, Glucose check: 109. 14:04 Method Of Arrival: EMS: [facility] 14:04 Acuity: ADRIANNA 3 jl7 Triage Assessment: 14:11 General: Appears in no apparent distress. uncomfortable, Behavior is calm, cooperative. jl7 Pain: Denies pain. EENT: No signs and/or symptoms were reported regarding the EENT system. Neuro: Level of Consciousness is awake, alert, obeys commands, confused, Oriented to person, place, time, situation. Cardiovascular: Patient's skin is warm and dry. Respiratory: Airway is patent Respiratory effort is even, unlabored, Respiratory pattern is regular, symmetrical. Derm: Skin is pink, warm \T\ dry. Historical: - Allergies: 14:11 Ranitidine HCl; jl7 14:11 Sulfa (Sulfonamide Antibiotics) (rash); jl7 - Home Meds: 14:11 levothyroxine 112 mcg oral tab 1 tab once daily [Active]; sertraline 100 mg Oral tab jl7 1.5 tabs [Active]; gabapentin 100 mg Oral cap 2 caps 2 times per day [Active]; flaxseed oil 1,000 mg Oral cap twice a day [Active]; multivitamin Oral [Active]; Co Q-10 100 mg Oral cap [Active]; Ferrocite Plus oral oral [Active]; magnesium citrate Oral soln [Active]; mirtazapine 30 mg oral tab 1 tab once daily [Active]; famotidine 40 mg Oral tab 1 tab once daily [Active]; - PMHx: 14:11 bladder tumors; Depression; Hypertension; Hypothyroidism; jl7 - PSHx: 14:11 Hysterectomy; Appendectomy; breast augmentation and liposuction; bladder tumor removed; jl7 - Immunization history:: Adult Immunizations up to date. - Social history:: Smoking status: Patient denies any tobacco usage or history of. Screenin:45 Abuse screen: Denies threats or abuse. Denies injuries from another. Nutritional jl7 screening: No deficits noted. Tuberculosis screening: No symptoms or risk factors identified. Fall Risk No fall in past 12 months (0 pts). No secondary diagnosis (0 pts). IV access (20 points). Ambulatory Aid- None/Bed Rest/Nurse Assist (0 pts). Gait- Weak (10 pts.). Mental Status- Overestimates/Forgets Limitations (15 pts.). Total [place] Fall Scale indicates High Risk Score (45 or more points). Fall prevention measures have been instituted. Side Rails Up X 2 Placed Close to Nursing Station Frequent Obs/Assessments Occuring As available patient and family educated on Fall Prevention Program and Strategies. Assessment: 14:11 General: See triage assessment. jl7 15:00 Reassessment: Patient appears in no apparent distress at this time. No changes from jl7 previously documented assessment. Patient and/or family updated on plan of care and expected duration. Pain level reassessed. Patient is alert, oriented x 3, equal unlabored respirations, skin warm/dry/pink. 16:00 Reassessment: Patient appears in no apparent distress at this time. No changes from jl7 previously documented assessment. Patient and/or family updated on plan of care and expected duration. Pain level reassessed. Patient is alert, oriented x 3, equal unlabored respirations, skin warm/dry/pink. Vital Signs: 14:04 BP 120 / 80; Pulse 74; Resp 17 S; Temp 98.8(O); Pulse Ox 97% on R/A; Pain 0/10; jl7 14:45 BP 123 / 73; Pulse 70; Resp 16 S; Pulse Ox 95% on R/A; jl7 15:30 BP 146 / 90; Pulse 75; Resp 16 S; Pulse Ox 99% on R/A; jl7 16:15 BP 136 / 81; Pulse 75; Resp 16; Pulse Ox 96% ; jl7 17:00 BP 142 / 88; Pulse 72; Resp 16 S; Pulse Ox 96% on R/A; jl7 NIH Stroke Scale Scores: 16:01 NIHSS Score: 1 kb ED Course: 13:58 Patient arrived in ED. jl7 14:06 Triage completed. jl7 14:11 Arm band placed on right wrist. jl7 14:11 Patient has correct armband on for positive identification. Placed in gown. Bed in low jl7 position. Call light in reach. Side rails up X 1. monitoring tech on. Pulse ox on. NIBP on. Warm blanket given. 14:11 Maintain EMS IV. Dressing intact. Site clean \T\ dry. Gauge \T\ site: 20 right FA. jl 7 14:38 Bernabe Chamberlain, RN is Primary Nurse. jl7 14:45 Initial lab(s) drawn, by ma, sent to lab. Inserted saline lock: 20 gauge in right jl7 antecubital area, using aseptic technique. Blood collected. 14:53 Bessie Durán FNP-C is PHCP. kb 14:53 Heber Borges MD is Attending Physician. kb 15:12 CT Head Brain wo Cont In Process Unspecified. EDMS 15:45 Urine collected: straight cath specimen, clear, Amount Returned: 80mL EKG done, by ED kj1 staff, reviewed by Heber Borges MD. 16:17 Sesar Faria MD is Hospitalizing Provider. kb 17:33 No provider procedures requiring assistance completed. Patient admitted, IV remains in jl7 place. intact, No redness/swelling at site. Administered Medications: No medications were administered Outcome: 16:17 Decision to Hospitalize by Provider. kb 17:33 Admitted to [facility] accompanied by tech, via stretcher, room 211, with chart, Report jl7 called to CHRISSY Khan 17:33 Condition: stable 17:33 Discharge instructions given to patient, Instructed on the need for admit, Demonstrated understanding of instructions. 17:54 Patient left the ED. jl7 NIH Stroke Scale - NIH Stroke Score Date: 08/28/2019 Time: 16:01 Total Score = 1 1a. Level of Consciousness (LOC) - 0(Alert) 1b. Level of Consciousness (LOC) (Year \T\ Age) - 0(Both) 1c. LOC Commands (Open \T\ Closes Eyes/[employer]) - 0(Both) 2. Best Gaze (Lateral Gaze Paresis) - 0(Normal) 3. Visual Field Loss - 0(No visual loss) 4. Facial Palsy - 0(Normal) 5a. Left Arm: Motor (10-second hold) - 0(No drift) 5b. Right Arm: Motor (10-second hold) - 0(No drift) 6a. Left Leg: Motor (5-second hold - always test supine) - 0(No drift) 6b. Right Leg: Motor (5-second hold - always test supine) - 0(No drift) 7. Limb Ataxia (finger/nose \T\ heel/reed - test with eyes open) - 0(Absent) 8. Sensory Loss (pinprick arms/legs/face) - 0(Normal) 9. Best Language: Aphasia (description/naming/reading) - 1(Mild to moderate aphasia) 10. Dysarthria (speech clarity - read or repeat words) - 0(Normal) 11. Extinction and Inattention (visual/tactile/auditory/spatial/personal) - 0(No abnormality) Initials: kb Signatures: Dispatcher [employer] EDBessie Demarco, BELINDA-C BELINDA-Bernabe Momin, RN RN jl7 Suzi Durán [email or web address]
--- NOTE | 2019-08-28 16:19 | EDPHYS ---
Physician Documentation [facility] Name: Milagro Canela Age: 79 yrs Sex: Female : 1940 Arrival Date: 08/28/2019 Time: 13:58 Bed 7 Private MD: ED Physician Heber Borges HPI: 08/27 16:12 This 79 yrs old Female presents to ER via EMS with complaints of General kb Weakness. 16:12 The patient's problem is reported as dysphasia, slow speech, weakness, that is kb generalized. Onset: The symptoms/episode began/occurred 4 day(s) ago. Duration: The episode is continuous. Context: the episode(s) was witnessed, by family, symptoms became apparent on August 25, 2019, occurred at home. The symptoms are alleviated by nothing. The symptoms are aggravated by nothing. Associated signs and symptoms: Pertinent positives: weakness. Severity of symptoms: At their worst the symptoms were moderate in the emergency department the symptoms have improved mildly. Patient's baseline: Neuro: alert and fully oriented, Motor: no deficits, Ambulation: walks without assistance, Speech: normal. The patient has not experienced similar symptoms in the past. The patient has not recently seen a physician. Pt reports she woke up on Tuesday so weak she couldn't get out of bed and she couldn't talk. States her speech is getting better, as well as the weakness, but still persists. Family sent pt in for weakness, tremors and dysphasia. Historical: - Allergies: 14:11 Ranitidine HCl; jl7 14:11 Sulfa (Sulfonamide Antibiotics) (rash); jl7 - Home Meds: 14:11 levothyroxine 112 mcg oral tab 1 tab once daily [Active]; sertraline 100 mg Oral tab jl7 1.5 tabs [Active]; gabapentin 100 mg Oral cap 2 caps 2 times per day [Active]; flaxseed oil 1,000 mg Oral cap twice a day [Active]; multivitamin Oral [Active]; Co Q-10 100 mg Oral cap [Active]; Ferrocite Plus oral oral [Active]; magnesium citrate Oral soln [Active]; mirtazapine 30 mg oral tab 1 tab once daily [Active]; famotidine 40 mg Oral tab 1 tab once daily [Active]; - PMHx: 14:11 bladder tumors; Depression; Hypertension; Hypothyroidism; jl7 - PSHx: 14:11 Hysterectomy; Appendectomy; breast augmentation and liposuction; bladder tumor removed; jl7 - Immunization history:: Adult Immunizations up to date. - Social history:: Smoking status: Patient denies any tobacco usage or history of. ROS: 16:11 Constitutional: Negative for fever, chills, and weight loss, ENT: Negative for injury, kb pain, and discharge, Neck: Negative for injury, pain, and swelling, Cardiovascular: Negative for chest pain, palpitations, and edema, Respiratory: Negative for shortness of breath, cough, wheezing, and pleuritic chest pain, Abdomen/GI: Negative for abdominal pain, nausea, vomiting, diarrhea, and constipation, Back: Negative for injury and pain, MS/Extremity: Negative for injury and deformity, Skin: Negative for injury, rash, and discoloration. 16:11 Neuro: Positive for speech changes, weakness. Exam: 16:01 Constitutional: This is a well developed, well nourished patient who is awake, alert, kb and in no acute distress. Head/Face: Normocephalic, atraumatic. Eyes: Pupils equal round and reactive to light, extra-ocular motions intact. Lids and lashes normal. Conjunctiva and sclera are non-icteric and not injected. Cornea within normal limits. Periorbital areas with no swelling, redness, or edema. ENT: Nares patent. No nasal discharge, no septal abnormalities noted. Tympanic membranes are normal and external auditory canals are clear. Oropharynx with no redness, swelling, or masses, exudates, or evidence of obstruction, uvula midline. Mucous membranes moist. Neck: Trachea midline, no thyromegaly or masses palpated, and no cervical lymphadenopathy. Supple, full range of motion without nuchal rigidity, or vertebral point tenderness. No Meningismus. Chest/axilla: Normal chest wall appearance and motion. Nontender with no deformity. No lesions are appreciated. Respiratory: Lungs have equal breath sounds bilaterally, clear to auscultation and percussion. No rales, rhonchi or wheezes noted. No increased work of breathing, no retractions or nasal flaring. Abdomen/GI: Soft, non-tender, with normal bowel sounds. No distension or tympany. No guarding or rebound. No evidence of tenderness throughout. Back: No spinal tenderness. No costovertebral tenderness. Full range of motion. Skin: Warm, dry with normal turgor. Normal color with no rashes, no lesions, and no evidence of cellulitis. MS/ Extremity: Pulses equal, no cyanosis. Neurovascular intact. Full, normal range of motion. 16:01 Neuro: Orientation: to person, place, time \T\ situation. Mentation: is normal, able to follow commands, Memory: is normal, Cranial nerves: extraocular movements are intact, Facial palsy and sensory deficits are absent. Motor: moves all fours, strength is 5/5 in the right arm and left arm, strength is 4/5 in the right leg and left leg. 16:17 Radiologist reports: no acute findings kb 16:18 ECG was reviewed by the Attending Physician. kb 16:27 Cardiovascular: Rate: normal, Rhythm: regular, Pulses: no pulse deficits are kb appreciated, Edema: pedal edema, that is moderate, Family reports edema to bilateral legs is normal for patient, unchanged. Vital Signs: 14:04 BP 120 / 80; Pulse 74; Resp 17 S; Temp 98.8(O); Pulse Ox 97% on R/A; Pain 0/10; jl7 14:45 BP 123 / 73; Pulse 70; Resp 16 S; Pulse Ox 95% on R/A; jl7 15:30 BP 146 / 90; Pulse 75; Resp 16 S; Pulse Ox 99% on R/A; jl7 16:15 BP 136 / 81; Pulse 75; Resp 16; Pulse Ox 96% ; jl7 17:00 BP 142 / 88; Pulse 72; Resp 16 S; Pulse Ox 96% on R/A; jl7 NIH Stroke Scale Scores: 16:01 NIHSS Score: 1 kb MDM: 14:53 Patient medically screened. kb 16:01 Data reviewed: vital signs, nurses notes. Data interpreted: Pulse oximetry: on room air kb is 97 %. Interpretation: normal. Counseling: I had a detailed discussion with the patient and/or guardian regarding: the historical points, exam findings, and any diagnostic results supporting the discharge/admit diagnosis, lab results, radiology results, the need for further work-up and treatment in the hospital. 16:16 Physician consultation: Alhaji Faria MD was contacted at 16:16, regarding admission, to kb the telemetry unit. and will see patient in inpatient room, shortly. 16:16 Physician consultation: Zia Loera MD was contacted at 16:16, regarding consult, patient's condition, and will see patient in inpatient room. 08/27 14:34 Order name: Basic Metabolic Panel; Complete Time: 15:58 kb 08/27 14:34 Order name: CBC with Diff; Complete Time: 15:25 kb 08/27 14:34 Order name: LFT's; Complete Time: 15:58 kb 08/27 14:34 Order name: Magnesium; Complete Time: 15:58 kb 08/27 14:34 Order name: NT PRO-BNP; Complete Time: 15:58 kb 08/27 14:34 Order name: PT-INR; Complete Time: 15:26 kb 08/27 14:34 Order name: Troponin (emerg Dept Use Only); Complete Time: 15:58 kb 08/27 14:34 Order name: EKG; Complete Time: 14:35 kb 08/27 14:34 Order name: Cardiac monitoring; Complete Time: 15:06 kb 08/27 14:34 Order name: EKG - Nurse/Tech; Complete Time: 16:06 kb 08/27 14:34 Order name: IV Saline Lock; Complete Time: 15:05 kb 08/27 14:54 Order name: CT Head Brain wo Cont; Complete Time: 15:31 kb 08/27 15:49 Order name: Urine Dipstick--Ancillary (enter results); Complete Time: 17:27 bd 08/27 16:37 Order name: Diet Heart Healthy; Complete Time: 16:38 bd 08/27 14:34 Order name: Labs collected and sent; Complete Time: 15:05 kb 08/27 14:34 Order name: O2 Per Protocol; Complete Time: 15:05 kb 08/27 14:34 Order name: O2 Sat Monitoring; Complete Time: 15:05 kb 08/27 14:58 Order name: Urine Dipstick-Ancillary (obtain specimen); Complete Time: 16:09 kb EC:18 Rate is 75 beats/min. Rhythm is regular. QRS Latta is Normal. [place] interval is normal at kb 198 msec. QRS interval is normal at 74 msec. QT interval is normal at 400 msec. Administered Medications: No medications were administered Disposition: 19:11 Co-signature as Attending Physician, Heber Borges MD Available for consultation in ps1 the ED. . Disposition: 08/28/19 16:17 Hospitalization ordered by Sesar Faria for Inpatient Admission. Preliminary diagnosis are Weakness, Dysphasia. - Bed requested for Telemetry/MedSurg (Inpatient). - Status is Inpatient Admission. jl7 - Condition is Stable. - Problem is new. - Symptoms are unchanged. NIH Stroke Scale - NIH Stroke Score Date: 08/28/2019 Time: 16:01 Total Score = 1 1a. Level of Consciousness (LOC) - 0(Alert) 1b. Level of Consciousness (LOC) (Year \T\ Age) - 0(Both) 1c. LOC Commands (Open \T\ Closes Eyes/Chemical Compounder Helper) - 0(Both) 2. Best Gaze (Lateral Gaze Paresis) - 0(Normal) 3. Visual Field Loss - 0(No visual loss) 4. Facial Palsy - 0(Normal) 5a. Left Arm: Motor (10-second hold) - 0(No drift) 5b. Right Arm: Motor (10-second hold) - 0(No drift) 6a. Left Leg: Motor (5-second hold - always test supine) - 0(No drift) 6b. Right Leg: Motor (5-second hold - always test supine) - 0(No drift) 7. Limb Ataxia (finger/nose \T\ heel/reed - test with eyes open) - 0(Absent) 8. Sensory Loss (pinprick arms/legs/face) - 0(Normal) 9. Best Language: Aphasia (description/naming/reading) - 1(Mild to moderate aphasia) 10. Dysarthria (speech clarity - read or repeat words) - 0(Normal) 11. Extinction and Inattention (visual/tactile/auditory/spatial/personal) - 0(No abnormality) Initials: kb Signatures: Dispatcher [employer] EDMS Bessie Durán, EDI BUSINESS SUPPORT PROFESSIONAL-Melvina Thompson Jahala, RN RN jl7 Heber Borges MD MD ps1 Corrections: (The following items were deleted from the chart) 16:16 16:11 Neuro: Positive for weakness, aphasia, kb kb 16:29 16:01 Constitutional: This is a well developed, well nourished patient who is kb awake, alert, and in no acute distress. Head/Face: Normocephalic, atraumatic. Eyes: Pupils equal round and reactive to light, extra-ocular motions intact. Lids and lashes normal. Conjunctiva and sclera are non-icteric and not injected. Cornea within normal limits. Periorbital areas with no swelling, redness, or edema. ENT: Nares patent. No nasal discharge, no septal abnormalities noted. Tympanic membranes are normal and external auditory canals are clear. Oropharynx with no redness, swelling, or masses, exudates, or evidence of obstruction, uvula midline. Mucous membranes moist. Neck: Trachea midline, no thyromegaly or masses palpated, and no cervical lymphadenopathy. Supple, full range of motion without nuchal rigidity, or vertebral point tenderness. No Meningismus. Chest/axilla: Normal chest wall appearance and motion. Nontender with no deformity. No lesions are appreciated. Cardiovascular: Regular rate and rhythm with a normal S1 and S2. No gallops, murmurs, or rubs. Normal PMI, no JVD. No pulse deficits. Respiratory: Lungs have equal breath sounds bilaterally, clear to auscultation and percussion. No rales, rhonchi or wheezes noted. No increased work of breathing, no retractions or nasal flaring. Abdomen/GI: Soft, non-tender, with normal bowel sounds. No distension or tympany. No guarding or rebound. No evidence of tenderness throughout. Back: No spinal tenderness. No costovertebral tenderness. Full range of motion. Skin: Warm, dry with normal turgor. Normal color with no rashes, no lesions, and no evidence of cellulitis. MS/ Extremity: Pulses equal, no cyanosis. Neurovascular intact. Full, normal range of motion. kb 16:58 16:17 Hospitalization Ordered by A Bienvenido OCAMPO for Inpatient Admission. Preliminary bd diagnosis is Weakness; Dysphasia. Bed requested for Telemetry/MedSurg (Inpatient). Status is Inpatient Admission. Condition is Stable. Problem is new. Symptoms are unchanged. kb 17:54 16:58 08/28/2019 16:17 Hospitalization Ordered by A Bienvenido OCAMPO for Inpatient jl7 Admission. Preliminary diagnosis is Weakness; Dysphasia. Bed requested for Telemetry/MedSurg (Inpatient). Status is Inpatient Admission. Condition is Stable. Problem is new. Symptoms are unchanged. bd
[2019-08-28 17:24] LABS: Urine Blood NEGATIVE (NEG); Urine Glucose NEGATIVE (NEG); Urine Protein NEGATIVE (NEG); Urine pH 7.5 (5.0-7.0)
[2019-08-28] MEDS: NA CHLORIDE 0.9% 1,000 ML IV SCH (18:11)
[2019-08-28 18:29] VITALS: BMI 34.9
[2019-08-28] MEDS ORDERED: GABAPENTIN 100 MG CAP PO ONE (23:00)
[2019-08-28] MEDS ORDERED: MIRTAZAPINE 15 MG TAB PO ONE (23:00)
--- NOTE | 2019-08-29 00:56 | HP ---
Date of Admission: 08/28/2019 Chief Complaint: Feeling weak, trouble speaking, and chills. History Of Present Illness: This is an 79-year-old female patient who started to have problem with c hills and shaking all over her body. She describes started on Tuesday or Tuesday of past weekend and this was associated with generalized weakness where she actually had even trouble getting out of bed and trouble walking. She was having some nausea and at times she had small amount of vomitus. Chris es any abdominal pain. No fever. No urinary complaints. She also had trouble speaking. Her appeti te has been poor lately. With all these complaints, she came into emergency room after she was evalu ated she was admitted to the hospital. Medications: List reviewed. Review of Systems: BURR FILER: As mentioned above. Constitutional: As mentioned above. GI: As mentioned above. All other systems reviewed and negative. Allergies: TO SULFA. Past Medical History: Significant for peripheral neuropathy likely due to alcohol use, hypothyroidis m, impaired fasting glucose, hypertension, hyperlipidemia, gastroesophageal reflux disease, diverticu losis, chronic kidney disease stage 3, anemia, osteoarthritis at multiple sites, overactive bladder, depression. Past Surgical History: Appendectomy, hysterectomy, knee surgery, liposuction, breast reduction. Family History: Significant for father had stroke, congestive heart failure, coronary artery disease . Mother and had diabetes, hypertension, stroke, coronary artery disease and congestive heart f ailure. Brother with history of colon cancer and hyperlipidemia. Social History: Negative for smoking, but longstanding use of alcohol, not at present time. Physical Examination: Vital Signs: Temperature 97.8, pulse 78, respiratory rate 18, blood pressure 113/69, oxygen saturati on 94%. Height 4 feet 10 inches, weight 167 pounds. General: Awake, alert, oriented, not in distress. HEENT: Head atraumatic, normocephalic. Conjunctivae nonerythematous. Sclerae white. Mouth, no thr ush or edema noted. Ears/Nose, no mass, lesion, discharge noted. Neck: Supple. No JVD, lymph nodes, bruit, thyromegaly noted. Lungs: Bilateral good equal air entry. Clear to auscultation. No rhonchi. No rales. Heart: Normal heart sounds, no murmur or gallop. Abdomen: Soft, bowel sounds normal. No guarding, rigidity, tenderness, mass, hepatosplenomegaly, dis tention, or bruit noted. Extremities: No leg edema. No calf tenderness. Skin: No rash, ulcer, cellulitis. Lymphatics: No lymph node enlargement in neck, supraclavicular, infraclavicular region. BURR FILER: Generalized weakness, but no focal neurological deficits noted. Chest: Unremarkable. External Genitalia: Deferred. Rectal: Deferred. Laboratory Data: White count 5.5, hemoglobin 8.9, platelets 211. Sodium 138, potassium 4.2, chlorid e 100, bicarb 31, BUN 28, creatinine 1.70, glucose 99, calcium 10.6. Liver function tests unremarkab le. Troponin less than 0.02. Urinalysis negative. CAT scan of the head, no acute intracranial adam ges. Impression: 1.Volume depletion. 2.Debility. 3.Generalized weakness. 4.Peripheral neuropathy. 5.Hypothyroidism. 6.Impaired fasting glucose. 7.Hypertension. 8.Gastroesophageal reflux disease. 9.Depression. 10.Osteoarthritis, multiple sites. 11.Overactive bladder. Plan: Admit the patient to hospital for further evaluation and management of this problem. The [facility] ent is appropriate for inpatient and is expected to spend 2 midnights in hospital. Home medications will be continued per order. We will give IV fluid per order. Repeat blood work tomorrow morning. DVT prophylaxis. Fall precaution should be ordered. We will consult neurologist, Dr. Loera and I will see her tomorrow for followup. We will get some x-rays done on her hips and bilateral knees an d lumbar spine. There is no evidence of any focal neurological deficit on exam today, except general ized weakness. Patient was unclear about her alcohol use lately, but [facility] and she was using alcohol up until that point, but after that, we are not sure so I will ask those questions again to her or her son again. KETAN/MODL Voice ID: [id number]
[2019-08-29 05:36] LABS: Basophils % 0.8 % (0-1.3); Hematocrit 25.2 % (36.0-45.0); Lymphocytes % 21.8 % (15.3-44.8); MPV 8.8 fL (7.6-11.3); RBC Red Blood Cell Count 2.81 M/uL (3.86-4.86)
[2019-08-29] MEDS: NA CHLORIDE 0.9% 1,000 ML IV SCH (05:46)
[2019-08-29] MEDS: LEVOTHYROXINE SOD 0.112 MG TAB PO SCH (05:46)
[2019-08-29] MEDS: MULTIVIT W/ MINERAL TAB PO SCH ×2 (08:12→21:29)
[2019-08-29] MEDS: CALCIUM CARBONATE 500 MG TAB PO SCH ×2 (08:12→21:29)
[2019-08-29] MEDS: GABAPENTIN 100 MG CAP PO SCH ×2 (08:13→21:29)
[2019-08-29] MEDS: ENOXAPARIN 30 MG/0.3 ML SQ SCH (08:13)
[2019-08-29] MEDS: SERTRALINE HCL 100 MG TAB PO SCH (08:13)
--- NOTE | 2019-08-29 09:19 | RAD REPORT ---
EXAM DESCRIPTION: RAD - Pelvis - 08/29/2019 9:00 am CLINICAL HISTORY: osteoarthritis COMPARISON: Pelvis dated 11/27/2017 TECHNIQUE: AP imaging of the pelvis was obtained. FINDINGS: No fractures identified. No pathologic bone process seen. SI joint degenerative changes ar e present mild in degree and not significantly different from the comparison study. Lumbar spine and hip joint findings are separately detailed. Degenerative changes are present at the pubic symphysis but are stable. Multiple phleboliths are present. No suspicious soft tissue finding. IMPRESSION: SI joint degenerative changes are present mild for age and stable from 2018.
--- NOTE | 2019-08-29 09:24 | RAD REPORT ---
EXAM DESCRIPTION: RAD - Hip Right 2 View - 08/29/2019 9:02 am CLINICAL HISTORY: osteoarthritis COMPARISON: Hip Right 2 View dated 09/27/2014 FINDINGS: AP and frog-leg views of the right hip were obtained. No fracture or dislocation. No AVN or focal head abnormality. Femoral head maintains smooth rounded c ontour. No joint space narrowing or measurable degenerative spurring or sclerosus of the acetabulum. Soft tissues around the right hip joint show no suspicious findings. No bone or joint changes seen fr om the 2014 comparison. IMPRESSION: No measurable degenerative change at no acute right hip joint finding. No significant change from the 2015 study.
--- NOTE | 2019-08-29 09:25 | RAD REPORT ---
EXAM DESCRIPTION: RAD - Hip Left 2 View - 08/29/2019 9:03 am CLINICAL HISTORY: osteoarthritis COMPARISON: Hip Left 2 View dated 10/14/2017; Hip Left 2 View dated 09/27/2014 FINDINGS: AP and frogleg views of the left hip were obtained. There is no fracture or dislocation. No AVN or focal femoral head abnormality. Femoral head maintains smooth rounded contour. No joint space narrowing. No soft tissue abnormality. IMPRESSION: Negative left hip examination for acute or significant findings. No measurable degree of osteoarthritis at the hip joint. No significant bone or joint changes since 2 018.
--- NOTE | 2019-08-29 09:28 | RAD REPORT ---
EXAM DESCRIPTION: RAD - Lumbar Spine 3 Views - 08/29/2019 9:03 am CLINICAL HISTORY: osteoarthritis COMPARISON: No comparisons FINDINGS: A three-view lumbar spine examination was performed. Slight wedging of the T11 body is present. T12 is normal in height. Lumbar bodies are normal in heigh t. There is anterior subluxation of L4 on L5 of approximately 3 mm. This is secondary to facet degene rative change. Alignment in the lumbar spine is otherwise normal. No acute lumbar vertebral body find ing. Facet joints are prominent in the lower lumbar spine and moderate in the mid and upper lumbar sp ine. No disc space narrowing. No pars defects identified. IMPRESSION: Prominent lower lumbar facet joint degenerative change. Mild anterior subluxation of L4 is present due to the facet degenerative change. No compression fracture or acute lumbar finding. Slight wedging of the T11 body approximately 10%. No comparison is available. Overall the lumbar spine, pelvis and hip joints show an underlying osteopenia. Correlation with bone scan study could be performed
--- NOTE | 2019-08-29 09:30 | RAD REPORT ---
EXAM DESCRIPTION: RAD - Knee Right 3 View - 08/29/2019 9:00 am CLINICAL HISTORY: osteoarthritis COMPARISON: Knee Right 3 View dated 09/18/2018; Knee Right 3 View dated 09/27/2014 FINDINGS: No fracture, dislocation or periosteal reaction.No measurable joint effusion seen. Patient has medial compartment narrowing and prominent degenerative changes along the articular surfaces of the medial tibial plateau and medial femoral condyle. Moderate to moderately large medial and lateral compartment marginal spurring seen. Moderately large spurs involve the articular margins of the ramires lla. The patella femoral joint space is narrowed. Medial compartment is narrowed. No fracture or pathologic bone process. No foreign body or other soft tissue abnormality. IMPRESSION: Advanced knee joint degenerative changes are present primarily involving the medial comp artment. No acute bone or joint finding seen. Degenerative changes stable or only very minimally progressive f rom August 2018. Clinical concerns for internal derangement or occult bony injury could be further assessed with MR im aging.
--- NOTE | 2019-08-29 09:31 | RAD REPORT ---
EXAM DESCRIPTION: RAD - Knee Left 3 View - 08/29/2019 9:03 am CLINICAL HISTORY: osteoarthritis COMPARISON: Knee Left 3 View dated 09/18/2018; Knee Left 3 view dated 09/27/2014 FINDINGS: No fracture, dislocation or periosteal reaction.No joint effusion seen. Significant medial compartment narrowing present with large marginal spurs. The compartment narrowing has progressed. P atient has mild spurring along the patella articular margins with narrowing of the patellofemoral louise nt space. Moderately large lateral compartment marginal spurs are present. No fracture or acute bone finding. No soft tissue abnormality. IMPRESSION: Advanced knee joint degenerative change primarily medial compartment. The medial compart ment changes have progressed from 2019. No acute bone or joint finding. Clinical concerns for internal derangement or occult bony injury could be further assessed with MR im aging.
[2019-08-29] MEDS: HOME MED 1 EA UNK (Mirabegron [Myrbetriq] 50 MG) PO SCH (12:00)
--- NOTE | 2019-08-29 16:20 | EKG ---
Test Date: 2019-08-28 Test Time: 15:54:09 Quill Buncher And Sorter: GLORIA MEASUREMENT RESULTS: Intervals: Rate: 75 NV: 198 QRSD: 74 QT: 400 QTc: 446 [place]: P: 76 NV: 198 QRS: 16 T: 76 INTERPRETIVE STATEMENTS: Normal sinus rhythm Nonspecific T wave abnormality Abnormal ECG Compared to ECG 08/02/2019 08:24:31 Myocardial infarct finding no longer present Possible ischemia no longer present T-wave abnormality still present Electronically Signed On 08-29-19 16:18:06 CDT by Ryan Hui
--- NOTE | 2019-08-29 17:18 | RAD REPORT ---
EXAM DESCRIPTION: MRI - Brain W/Wo Cont - 08/29/2019 4:20 pm CLINICAL HISTORY: new onset of tremors and weakness Headache, drowsiness COMPARISON: Head Brain Wo Cont dated 08/28/2019 TECHNIQUE: Multi-sequence, multiplanar MR imaging of the brain was performed with contrast. FINDINGS: No intracranial hemorrhage, hydrocephalus, or extra-axial fluid collection.Advanced brain atrophy is seen. Mild chronic periventricular white matter ischemic changes. No edema or shift of mid line structures. No intracranial mass. DWI is negative for acute CVA. The midline structures are normally formed. Mastoid air cells and paranasal sinuses are clear. Post-contrast images show no abnormal enhancement to suggest tumor or infection. IMPRESSION: Moderate generalized brain atrophy. No pathologic post-contrast enhancement suspected.
[2019-08-29] MEDS: MAGNESIUM CITRATE 100 MG PO SCH (21:00)
[2019-08-29] MEDS: FAMOTIDINE 20 MG TAB PO SCH (21:28)
[2019-08-29] MEDS: MIRTAZAPINE 15 MG TAB PO SCH (21:30)
[2019-08-29] MEDS ORDERED: GABAPENTIN 100 MG CAP PO ONE (22:08)
[2019-08-29] MEDS ORDERED: MIRTAZAPINE 15 MG TAB PO ONE (22:08)
--- NOTE | 2019-08-30 00:06 | CON ---
Reason For Consultation: Consultation called by Dr. Faria because of shaking or tremors. History Of Present Illness: Ms. Canela is an 79-year-old right-handed patient with multiple medical problems including hypertension, stage 3 renal disease, hyperthyroidism along with chronic al cohol use, who comes in with generalized shaking, trouble getting words and thoughts out, and feels w eakness. She said symptoms seem to begin fairly suddenly this past Tuesday, where she noted shaking in the arms, legs, and body when she tried to move and get out of bed. She had trouble maintaining her balance because of the shaking and did have nausea with some vomiting. She denied any fevers. S he denied any sick contacts. At [facility], her head CT scan was negative for any acute isc hemic or hemorrhagic change. Subsequent brain MRI, stroke protocol ruled out the presence of any acu te ischemic or hemorrhagic change. However, the study was remarkable for moderate diffuse atrophy. She had hip x-ray, knee x-ray, and lumbar spine x-ray, which showed in the hip, no measurable degree of osteoarthritis, no significant bone or joint change. The study was negative for any fractures. K nee x-ray showed however advanced knee joint degeneration, primarily involving the medial compartment . No acute bony findings. Very minimal progression from August of 2018 that is 1 year ago. Lumbar spi ne x-ray revealed prominent lower lumbar facet degeneration, mild anterior subluxation of L4 due to f acet degeneration, there was a slight wedging of T11 vertebra, approximately 10% and there was underl balaji osteopenia of the lumbar spinal vertebrae. Past Medical History: As indicated. In addition, gastroesophageal reflux disease, hypertension, dys lipidemia, diverticulosis, osteoarthritis, depression, overactive bladder. Past Surgical History: Knee surgery, hysterectomy, appendectomy, liposuction, breast reduction. Family History: Positive for stroke, coronary artery disease, diabetes, congestive heart failure, ca ncer, dyslipidemia. Social History: She has a prior history of chronic alcohol abuse but no chronic alcohol use. No tob acco use. Medications: Currently, Lovenox 30 mg subcutaneously daily, Pepcid 40 mg daily, calcium carbonate 10 00 mg at bedtime, Neurontin 200 mg twice daily, Synthroid 0.112 mg daily, Remeron 30 mg at bedtime, Z oloft 100 mg daily, Centrum Silver daily. Review of Systems: Aside from mentioned above, she denies any recent fevers or chills. There are some myalgias and arth ralgias in the knees and lower extremities. No rash. No psychiatric issues. Physical Examination: Vital Signs: Blood pressure 159/70, pulse 83, respiratory rate 18, temperature 98.5, oxygen saturati on 99% on room air. Weight 167 pounds, height 5 feet 10 inches, BMI 35. General: Ms. Canela is sitting in a chair beside her bed. She is in no acute distress. When moving h er arm, she does have a postural mild flexion-extension type tremor. When arms are at rest, the trem or resolves. She has slight tremulousness to her voice and her trunk is slightly tremulous when movi ng. HEENT: She is normocephalic, atraumatic. Sclerae anicteric. Oropharynx is moist, pink. Neck: Supple. Chest: Clear. Heart: Regular. Extremities: Show no significant edema or cyanosis. Neurologic: Alert, oriented to situation, place, and person. Follows commands appropriately. No ob vious cranial nerve deficits. Motor examination, she has symmetric strength in upper and lower extre mities. Sensation has decreased in stocking-glove, loss in the legs and arms. Reflexes are depresse d and symmetric. Again with extended arm, she has a mild flexion-extension tremor, which is present when the forearms are flexed toward the face and extended. She did draw Archimedes spirals, which sh owed more of a tremor with action, more notable in the left versus right upper extremity and she had the tremor subsided when the arms were resting on her thighs. She will be ambulated with the physica l therapist. Laboratory Studies: White blood cell count 6.4, hemoglobin 8.2, hematocrit 25.2, platelets 164. INR 1.00. Chemistries show elevated creatinine 1.61, calcium elevated to 8.4, was higher at 10.6 yester day. Liver function studies normal. Sodium, potassium, chloride, essentially unremarkable. BUN sli ghtly elevated. Urinalysis was negative except for pH of 7.5. Her electrocardiogram showed normal s inus rhythm with nonspecific T-wave abnormalities. Assessment: Ms. Canela is an 79-year-old patient with apparent long history of alcohol abuse, but has not had alcohol recently, who comes in with a postural tremor. There are components of an enhanced p hysiological tremor and components of benign essential tremor. She does not have a tremor consistent with Parkinson disease. Plan: May consider primidone 25 or 50 mg at night for tremor control; however, I suspect that her po stural tremor may subside with less anxiety and with more hydration. If still worried about the poss ibility of Parkinson disease,a CARLOS scan may be done either at [facility] or in [place]. She may have physical therapy to help with gait, coordination, balance, and she should use a walker w hile ambulating. May evaluate for transfer to the acute inpatient rehabilitation unit for such physical and occupation al therapy. She will either followup in hospital after discharge in [address] Loera's office. MARK ANTHONY/EDDY Voice ID: [id number] Report ID: [id number]
[2019-08-30] MEDS: NA CHLORIDE 0.9% 1,000 ML IV SCH ×2 (03:55→15:43)
[2019-08-30] MEDS: LEVOTHYROXINE SOD 0.112 MG TAB PO SCH (05:04)
[2019-08-30 06:53] LABS: Basophils % 0.5 % (0-1.3); Hematocrit 30.3 % (36.0-45.0); Lymphocytes % 16.3 % (15.3-44.8); MPV 8.6 fL (7.6-11.3); RBC Red Blood Cell Count 3.33 M/uL (3.86-4.86)
[2019-08-30 07:02] LABS: Magnesium 1.9 mg/dL (1.8-2.4); Potassium 4.3 mmol/L (3.5-5.1)
--- NOTE | 2019-08-30 07:26 | PN ---
Date of Progress Note: 08/29/2019 Subjective: Patient was seen this morning for followup. No new complaints, problems reported by patient, lying in bed, not in any distress overnight. She does not report any new problems or complaints. Objective: Vital Signs: Reviewed. HEENT: Unremarkable. Lungs: Clear to auscultation. Heart: Sounds normal. Abdomen: Soft. Bowel sounds normal. No guarding, rigidity, tenderness, or distention. Extremities: No leg edema. Laboratory Data: White count 4.6, hemoglobin 8.2, platelets 164. Sodium 141, potassium 4, chloride 108, bicarb 27, BUN 27, creatinine 1.61, glucose 99. Impression: 1. Volume depletion. 2. Chronic kidney disease, stage 3. 3. Anemia. 4. Osteoarthritis, multiple sites. 5. Generalized weakness. 6. Debility. Plan: Patient's MRI that was done on the brain came back negative for any acute stroke or any other acute changes, shows moderate amount of atrophy, bilateral hip and bilateral knee shows advanced osteoarthritis changes of bilateral knees, mild degenerative changes in the lumbar spine. We will continue IV fluid hydration. Repeat blood work tomorrow and follow up with neurologist. KETAN/MODL Voice ID: [id number] Report ID: [id number] DANIELLE
[2019-08-30] MEDS: MULTIVIT W/ MINERAL TAB PO SCH ×2 (09:11→20:38)
[2019-08-30] MEDS: GABAPENTIN 100 MG CAP PO SCH ×2 (09:11→20:37)
[2019-08-30] MEDS: SERTRALINE HCL 100 MG TAB PO SCH (09:11)
[2019-08-30] MEDS: ENOXAPARIN 30 MG/0.3 ML SQ SCH (09:11)
--- NOTE | 2019-08-30 09:36 | RAD REPORT ---
EXAM DESCRIPTION: [facility] Single View08/30/2019 9:16 am CLINICAL HISTORY: Chest pain COMPARISON: July 2019 FINDINGS: The lungs appear clear of acute infiltrate. The heart is borderline enlarged. Small to moderate hiatal hernia IMPRESSION: No acute abnormalities displayed
[2019-08-30] MEDS: HOME MED 1 EA UNK (Mirabegron [Myrbetriq] 50 MG) PO SCH (11:34)
[2019-08-30] MEDS: FAMOTIDINE 20 MG TAB PO SCH (20:37)
[2019-08-30] MEDS: MIRTAZAPINE 15 MG TAB PO SCH (20:38)
[2019-08-30] MEDS: CALCIUM CARBONATE 500 MG TAB PO SCH (20:38)
[2019-08-30] MEDS: MAGNESIUM CITRATE 100 MG PO SCH (21:00)
--- NOTE | 2019-08-30 23:32 | PN ---
Date of Progress Note: 08/30/2019 Subjective: Patient was seen this morning for followup. No new complaints, problems reported by her . Objective: Vital Signs: Reviewed. HEENT: Unremarkable. Lungs: Clear to auscultation. Cardiac: Heart sounds normal. Abdomen: Soft, bowel sounds normal. No guarding, rigidity, tenderness, distention. Extremities: No leg edema. Laboratory Data: Sodium 140, potassium 4.3, chloride 107, bicarb 28, BUN 22, creatinine 1.38, glucos e 103, magnesium 1.9. Impression: 1.Volume depletion. 2.Acute kidney injury. 3.Anemia. 4.Dementia. 5.Generalized weakness. 6.Osteoarthritis, multiple sites. Plan: Patient's WBC count was slightly elevated this morning it was 12.4, no evidence of any infecti on and the urinalysis was normal. Chest x-ray was repeated today and does not show any signs of infi ltrate. Clinically she does not have any signs or symptoms of any infection. So, we will go ahead a nd continue to monitor her. Continue to follow with neurologist. I did call the patient's son and jackson silva were discussed with him. Her MRI shows moderate amount of cerebral atrophy and she has a long standing history of heavy alcohol use. In last 2 months or so, she is having more and more problem w ith periods of confusion and she is becoming less and less active, eating poorly and a lot of time sh e is not even getting out of bed as the patient since has been today. I am concerned that the patien t has dementia setting in and as the time goes on. It is expected to continue to get worse and it is also expected for her to require more and more help and more care and more assistance that it will n ot be possible for her to caring at home as she lives at home by herself and she has a caregiver, but lot of time she is not refusing her caregiver to come to her place to help her. So, I did recommend to patient and patient's son about going into long term facility. Son is agreeable and he amadeo l communicate with the patient and I will also communicate with the patient. I have already started talking to patient about this and I will communicate with her tomorrow as well. We will consult [facility] al Service to assist the patient with long term facility placement using facility of her choice . I will see her tomorrow for followup. Considering risk and benefit from any kind of knee surgery, I would not advise her to undergo any surgery, in fact, I remember having discussion with her and kennedy trujillo year to 2 years ago and I had same concern about her undergoing surgery and obviously over last year to 2 years, her condition has deteriorated. There is a good possibility that she may undergo orourke rgery without any significant problem, but getting over the surgery will definitely be challenge for her. All these details were discussed with the patient's son and patient. KETAN/MODL Voice ID: [id number] Report ID: [id number]
[2019-08-31 05:07] LABS: Absolute Lymphocytes (CBC) 0.9 K/uL (0.7-4.9); Basophils % 0.6 % (0-1.3); Hematocrit 24.3 % (36.0-45.0); Lymphocytes % 10.6 % (15.3-44.8); MPV 8.6 fL (7.6-11.3); RBC Red Blood Cell Count 2.71 M/uL (3.86-4.86)
[2019-08-31] MEDS: LEVOTHYROXINE SOD 0.112 MG TAB PO SCH (05:10)
[2019-08-31 05:25] LABS: Magnesium 1.3 mg/dL (1.8-2.4); Potassium 4.1 mmol/L (3.5-5.1)
[2019-08-31] MEDS ORDERED: Magnesium Sulfate 2gm IVPB 2 G/50 ML BAG IV ONE (08:30)
[2019-08-31] MEDS: GABAPENTIN 100 MG CAP PO SCH (09:00)
[2019-08-31] MEDS ORDERED: SOD FERRIC GLUC COMPLX/SUCROSE 125 MG in NA CHLORIDE 0.9% 100 ML IV SCH (09:00)
[2019-08-31] MEDS: ENOXAPARIN 30 MG/0.3 ML SQ SCH (09:34)
[2019-08-31] MEDS: SERTRALINE HCL 100 MG TAB PO SCH (09:34)
[2019-08-31] MEDS: MULTIVIT W/ MINERAL TAB PO SCH (09:34)
[2019-08-31] MEDS: HOME MED 1 EA UNK (Mirabegron [Myrbetriq] 50 MG) PO SCH (12:00)
--- NOTE | 2019-08-31 12:42 | PN ---
Date of Progress Note: 08/31/2019 Subjective: Patient was seen this morning for followup. No new complaints or problems reported by t he patient. Her speech was lot better today compared to last 2 to 3 days. Overall generalized weakn ess is better. Denies any complaints this morning. Objective: Vital Signs: Reviewed. HEENT: Unremarkable. Lungs: Clear to auscultation. Heart: Sounds normal. Abdomen: Soft. Bowel sounds normal. No guarding, rigidity, tenderness, or distention. Extremities: No leg edema. Neuro: Movement of her both lower extremity against gravity is much-much better today compared to ho w it was when she was first admitted to the hospital. She is able to raise both lower extremity agai nst gravity up to about 45 degree or so. Laboratory Data: White count 8.8, hemoglobin 8, platelets 175, sodium 141, potassium 4.1, chloride 1 08, bicarb 28, BUN 18, creatinine 1.19, glucose 102, magnesium 1.3. Impression: 1.Volume depletion. 2.Acute kidney injury. 3.Anemia. 4.Hypomagnesemia. 5.Generalized weakness. 6.Debility. Plan: We will go ahead and replace magnesium per protocol. Start the patient on IV iron therapy. I did communicate with the patient today regarding my recommendation to go to assisted facility and she is agreeable for that. I also discussed with her about my concerns about dementia. Social Service is assisting the patient with assisted facility placement. Once that is arranged, we will be able to discharge her. Medically, she is stable for discharge. KETAN/MODL Voice ID: [id number] Report ID: [id number]
[2019-08-31 13:10] VITALS: O2SAT 95
[2019-08-31 16:21] VITALS: BP 102/57; TEMP 98.9
== END 2019-08-31 18:34 | DRG 92 ==
LOC: ER 13:50 → INTOOBSV 16:21 → ERHOLD 16:21 → 2ND 17:34 → OBSVTOIN 08-30 10:43
PROVIDERS: ADMIT Internal Medicine; ATTEND Internal Medicine
DX: G25.2 Other specified forms of tremor (principal); N17.9 Acute kidney failure, unspecified; E86.9 Volume depletion, unspecified; F03.90 Unspecified dementia, unspecified severity, without behavioral disturbance, psychotic disturbance, mood disturbance, and anxiety; E78.5 Hyperlipidemia, unspecified; K21.9 Gastro-esophageal reflux disease without esophagitis; N18.3 Chronic kidney disease, stage 3 (moderate); I12.9 Hypertensive chronic kidney disease with stage 1 through stage 4 chronic kidney disease, or unspecified chronic kidney disease; Z90.710 Acquired absence of both cervix and uterus; R53.81 Other malaise; G62.9 Polyneuropathy, unspecified; E03.9 Hypothyroidism, unspecified; R73.01 Impaired fasting glucose; F32.9 Major depressive disorder, single episode, unspecified; M19.90 Unspecified osteoarthritis, unspecified site; N32.81 Overactive bladder; Z88.1 Allergy status to other antibiotic agents; Z88.8 Allergy status to other drugs, medicaments and biological substances; Z79.890 Hormone replacement therapy; Z79.899 Other long term (current) drug therapy; D64.9 Anemia, unspecified; E83.42 Hypomagnesemia; Z60.2 Problems related to living alone
CPT/HCPCS: 36415; 70450; 70553; 71045; 72100; 72170; 80048; 80076; 81003; 83735; 83880; 84484; 85025; 85610; 93005; 97112; 97116; 97161; 97530; 99285; A9577; G0378; J1650; J2916; J3475; J7030